=== PATIENT | male | born 1985 | race African-American/Black ===

== ENCOUNTER → 2019-10-01 | Outpatient (REF) | payer OTHER | LOC: M LAB REF 13:32 | PROVIDERS: ATTEND Physician Assistant | DX: R06.00 Dyspnea, unspecified (principal) ==

== ENCOUNTER → 2019-10-02 | Outpatient (REF) | payer OTHER ==
[~2019-10-02] MED LIST: DOXY100C37 PO; PRED20TA PO; PROAAER10; TESS100C PO
== END ==
LOC: M LAB REF 15:38
PROVIDERS: ATTEND Physician Assistant
DX: R06.00 Dyspnea, unspecified (principal)

== ENCOUNTER → 2019-10-03 | Outpatient (REF) | payer OTHER | LOC: M LAB REF 13:10 | PROVIDERS: ATTEND Physician Assistant | DX: R06.00 Dyspnea, unspecified (principal) ==

== ENCOUNTER → 2019-10-03 | Outpatient (CLI) | payer OTHER | LOC: M LAB 08:47 | PROVIDERS: ATTEND Physician Assistant | DX: R06.02 Shortness of breath (principal) ==

== ENCOUNTER → 2019-10-10 | Outpatient (CLI) | payer OTHER ==
[~2019-10-10] MED LIST changes: -DOXY100C37 PO; -PRED20TA PO; -TESS100C PO
--- NOTE | 2019-10-10 17:48 | REP ---
CT chest without contrast: History: Dyspnea. Comparison chest x-ray September 13, 2019. Comparison chest CT study September 14, 2019. Findings: There is no evidence of pleural or pericardial effusion. No adrenal lesion is seen. Visualized upper abdominal structures are unremarkable. There are scattered normal-sized mediastinal lymph nodes. The anterior mediastinum shows evidence of residual thymic tissue. These findings are unchanged from September 14, 2019. No bony abnormality is seen. The lung parenchyma shows multiple abnormalities however. There are patchy chronic bilateral interstitial infiltrates in the upper lobes bilaterally. There are reticular changes in the lower lobes bilaterally associated with some ground-glass opacity confluently in the right lower lobe and to a lesser extent left lower lobe. There is bronchiectasis moderate in degree in the lower lobes bilaterally. There is a noncalcified 1 cm pulmonary nodule in the right lower lobe on page 60 of 99 in series 201 of today's study. The second smaller pulmonary nodule is seen adjacent to this on page 58. There is a 7 mm pulmonary nodule medial to this again in the right lower lobe on the same as slice page 58. These nodular opacities are more prominent and more conspicuous than on the prior study but not felt to be new. There is a ill-defined nodular opacity in the left lower lobe on page 63 which is larger than on the prior study. This measures 10 mm. It has ill-defined margins. There is a 7 mm nodular opacity in the left lower lobe on page 60. There is a small peribronchovascular nodule in the left upper lobe on page 64, 7 mm in diameter. This is unchanged. A tiny 3-4 mm nodule is visible in the lingular segment of the left upper lobe on page 63. This is unchanged. No endobronchial lesion is seen. No bony destructive lesion. Impression: Bilateral lower lobe bronchiectasis associated with reticulonodular changes and ground-glass opacity changes in the lower lobes and to a lesser extent the upper lobes. Chronic granulomatous changes and inflammatory diseases are in the differential. There is no definite adenopathy. Electronically Signed by Rolf Ford MD 10/10/2019 05:49 P
== END ==
LOC: M RAD 09:56
PROVIDERS: ATTEND Physician Assistant
DX: R06.09 Other forms of dyspnea (principal)

== ENCOUNTER 2019-10-11 23:45 | Emergency (ER) | payer OTHER ==
[~2019-10-11] VITALS: Ht 177.8 cm; Wt 91.8 kg
[2019-10-12] MEDS ORDERED: PROAAER10 (00:02)
[2019-10-12 01:56] LABS: BASO # 0.1 10^3/uL (0.0-0.2); BASO % 0.6 % (0.0-1.0); EOS # 0.8 10^3/uL (0.0-0.5); EOS % 6.4 % (0.0-3.0); HEMOGLOBIN 14.5 g/dl (13.5-17.5); LYMPH # 2.3 10^3/uL (1.5-5.0); LYMPH % 19.5 % (24.0-44.0); MEAN CORPUSCULAR HEMOGLOBIN 25.5 pg (27.0-33.0); MEAN CORPUSCULAR HGB CONC 31.5 g/dl (32.0-36.5); MEAN CORPUSCULAR VOLUME 80.8 fl (80.0-96.0); MONO # 1.1 10^3/uL (0.0-0.8); MONO % 9.2 % (0.0-5.0); NEUTROPHILS # 7.5 10^3/uL (1.5-8.5); NEUTROPHILS % 63.9 % (36.0-66.0); PLATELET COUNT, AUTOMATED 288 10^3/uL (150-450); RED BLOOD COUNT 5.69 10^6/uL (4.30-6.10); VENOUS BASE EXCESS 0.6 (-2.0-2.0); VENOUS HCO3 27.5 MEQ/L (23.0-27.0); VENOUS O2 SATURATION 83.9 % (60.0-80.0); VENOUS PARTIAL PRESSURE CO2 52.5 mmHg (38.0-50.0); VENOUS PARTIAL PRESSURE O2 49.8 mmHg (30.0-50.0); VENOUS PH 7.337 UNITS (7.330-7.430); VENOUS STANDARD HCO3 24.7 MEQ/L; VENOUS TOTAL CO2 29.1 MEQ/L (24.0-28.0); WHITE BLOOD COUNT 11.7 10^3/uL (4.0-10.0)
[2019-10-12 02:21] LABS: BLOOD UREA NITROGEN 11 MG/DL (7-18); CARBON DIOXIDE LEVEL 27 MEQ/L (21-32); CHLORIDE LEVEL 105 MEQ/L (98-107); CK-MB VALUE MASS < 1.0 NG/ML (<3.6); CPK CREATINE PHOSPHOKINASE 313 U/L (39-308); CREATININE FOR GFR 0.88 MG/DL (0.70-1.30); GLOMERULAR FILTRATION RATE > 60.0 (>60); GLUCOSE, FASTING 96 MG/DL (70-100); MB/CK RELATIVE INDEX 0.32 (< OR =4); POTASSIUM SERUM 3.8 MEQ/L (3.5-5.1); SODIUM LEVEL 139 MEQ/L (136-145); TROPONIN I < 0.02 NG/ML (< 0.10)
[2019-10-12] MEDS ORDERED: methylPREDNISolone INJ 125 MG/2 ML VIAL (J2930) IV ONE (02:30)
[2019-10-12] MEDS ORDERED: BENZONATATE 100 MG CAP PO ONE (02:30)
[2019-10-12 02:45] LABS: INFLUENZA A AMPLIFICATION NEGATIVE (NEGATIVE); INFLUENZA B AMPLIFICATION NEGATIVE (NEGATIVE)
[2019-10-12] MEDS ORDERED: TESS100C PO (03:50)
[2019-10-12] MEDS ORDERED: PRED20TA PO (03:50)
[2019-10-12 04:05] VITALS: BP 135/87
--- NOTE | 2019-10-12 08:09 | REP ---
Chest x-ray: Two views. History: Dyspnea and cough. Comparison chest CT study October 10, 2019. Comparison chest x-ray September 13. There are increased markings in the lower lobes bilaterally consistent with increased bilateral lower lobe infiltrates. Heart is not enlarged. No pleural effusion is seen. Impression: Bilateral infiltrates consistent with pneumonia. Radiographically more prominent. Electronically Signed by Rolf Ford MD 10/12/2019 08:01 A
--- NOTE | 2019-10-12 15:53 | ED PDOC ---
Post-Departure Follow-Up sae palma and dr griffin faxed formal report of cxr for fu kimberlyg Ji Rowe MD Oct 12, 2019 15:53
--- NOTE | 2019-10-12 15:53 | ED PDOC ---
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
--- NOTE | 2019-10-12 20:12 | ECGEPIP ---
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
[2019-10-15] MEDS ORDERED: DOXY100C37 PO (11:24)
== END 2019-10-12 04:07 | disposition home or self-care (01) ==
LOC: M ED 23:45
DX: J40 Bronchitis, not specified as acute or chronic (principal); Z87.891 Personal history of nicotine dependence
CPT/HCPCS: 71046; 80048; 82550; 82553; 82803; 84484; 85025; 87502; 93005; 96374; 99284; J2930

== ENCOUNTER → 2019-10-18 | Outpatient (CLI) | payer OTHER ==
[~2019-10-18] MED LIST changes: +DOXY100C37 PO; +PRED20TA PO; +TESS100C PO
[2019-10-18 11:11] LABS: BASO # 0.1 10^3/uL (0.0-0.2); BASO % 0.6 % (0.0-1.0); EOS # 0.2 10^3/uL (0.0-0.5); EOS % 1.3 % (0.0-3.0); HEMATOCRIT 49.5 % (42.0-52.0); HEMOGLOBIN 15.8 g/dl (13.5-17.5); LYMPH # 2.4 10^3/uL (1.5-5.0); LYMPH % 20.2 % (24.0-44.0); MEAN CORPUSCULAR HEMOGLOBIN 25.9 pg (27.0-33.0); MEAN CORPUSCULAR HGB CONC 31.9 g/dl (32.0-36.5); MONO % 8.6 % (0.0-5.0); NEUTROPHILS # 8.3 10^3/uL (1.5-8.5); NEUTROPHILS % 68.7 % (36.0-66.0); PLATELET COUNT, AUTOMATED 297 10^3/uL (150-450); RED BLOOD COUNT 6.11 10^6/uL (4.30-6.10)
[2019-10-18 11:50] LABS: ALBUMIN 3.6 GM/DL (3.2-5.2); ALT/SGPT 30 U/L (12-78); BILIRUBIN,DIRECT < 0.1 MG/DL (0.0-0.2); BILIRUBIN,TOTAL 0.3 MG/DL (0.2-1.0); CALCIUM LEVEL 8.3 MG/DL (8.5-10.1); CREATININE FOR GFR 0.86 MG/DL (0.70-1.30); GLOMERULAR FILTRATION RATE > 60.0 (>60); IMMUNOGLOBULIN G 1330 MG/DL (681-1648); IMMUNOGLOBULIN M 45.7 MG/DL (40-230); TOTAL 25(OH) VITAMIN D 12.8 NG/ML (30.0-100.0); TOTAL PROTEIN 7.9 GM/DL (6.4-8.2)
[2019-10-22 14:38] LABS: ANGIOTENSIN 1 CONVERTING ENZYM 42 U/L (14-82); ASPERGILLUS FLAVUS ABY Negative (Neg:<1:1); ASPERGILLUS FUMIGATUS ABY Negative (Neg:<1:1); ASPERGILLUS NIGER ABY Negative (Neg:<1:1); VITAMIN D 1,25 DIHYDROXY 53.4 pg/mL (19.9-79.3)
== END ==
LOC: M LAB 09:46
PROVIDERS: ATTEND Internal Medicine Pulmonary Disease
DX: J47.9 Bronchiectasis, uncomplicated (principal)

== ENCOUNTER → 2019-11-26 | Outpatient (CLI) | payer OTHER ==
[~2019-11-26] MED LIST changes: +BAYE325T13 PO; +LIDOCAINE 1% MDV 20ML VIAL As Ordered ONE
[2019-11-26 15:12] VITALS: BP 150/98
--- NOTE | 2019-11-28 22:28 | REP ---
PICC line insertion under ultrasound guidance. The procedure was performed by STEPHENIE Kaufman, under the direct supervision of Dr. Blanca. The risks and benefits of the procedure were explained to the patient and informed consent was obtained both verbally and written. Directly prior to the start of the procedure, a formal timeout was completed in the procedure room. The left basilic vein was localized using ultrasound guidance. The skin was prepped and draped in the sterile fashion. 2 ml 1% lidocaine 10 mg/ml was used as a local anesthetic. Using ultrasound guidance the left basilic vein was cannulated and a 0.018 guidewire was inserted and advanced to the SVC using fluoroscopic guidance. The needle was removed and a 4.5 Chinese dilator and peel-away sheath was inserted over the guidewire. A 4.5 Chinese single lumen catheter was cut to the length of 45 cm. The dilator was removed and the catheter was inserted over the guide wire with the tip ending in the SVC. The peel-away sheath was removed and the catheter was flushed with heparinized saline as per hospital protocol. The catheter was affixed to the skin and a sterile dressing was applied. The patient tolerated the procedure well and there were no immediate complications. 0.3 minutes of fluoroscopy time was utilized for this procedure. Some fluoroscopic images are performed with last image hold technology. These images require no additional radiation. Reviewed by STEPHENIE Collazo 11/26/2019 04:45 P Electronically Signed by Ritesh Blanca MD 11/28/2019 10:19 P
== END ==
LOC: M IRPRO 14:20
PROVIDERS: ATTEND Internal Medicine Infectious Disease
DX: A31.9 Mycobacterial infection, unspecified (principal)
CPT/HCPCS: 36573; C1751; J1642; J1644

== ENCOUNTER → 2019-11-26 | Outpatient (CLI) | payer OTHER ==
[~2019-11-26] MED LIST changes: +ALBU83IN INH; -LIDOCAINE 1% MDV 20ML VIAL As Ordered ONE; +OMEP-218 PO; +PRED10TA2 PO; -PROAAER10; +PROAAER10 INH; +PULM0.5S INH
[2019-11-26 15:18] LABS: APPEARANCE, URINE CLEAR (CLEAR); BACTERIA, URINE AUTO NEGATIVE (NEGATIVE); BILIRUBIN, URINE AUTO NEGATIVE (NEGATIVE); BLOOD, URINE BLOOD NEGATIVE (NEGATIVE); COLOR, URINE YELLOW (YELLOW); GLUCOSE, URINE (UA) AUTO NEGATIVE (NEGATIVE); KETONE, URINE AUTO NEGATIVE (NEGATIVE); LEUKOCYTE ESTERASE, URINE AUTO NEGATIVE (NEGATIVE); MUCUS, URINE SMALL (NEGATIVE); NITRITE, URINE AUTO NEGATIVE (NEGATIVE); PROTEIN, URINE AUTO NEGATIVE (NEGATIVE); RBC, URINE AUTO 2 /HPF (0-3); SPECIFIC GRAVITY URINE AUTO 1.019 (1.002-1.035); SQUAMOUS EPITHELIAL CELL UR AU 0 /HPF (0-6); UROBILINOGEN, URINE AUTO 0.2 mg/dL (0.0-2.0); WBC, URINE AUTO 0 /HPF (0-3)
[2019-11-26 15:32] LABS: BASO # 0.1 10^3/uL (0.0-0.2); BASO % 0.7 % (0.0-1.0); EOS # 0.4 10^3/uL (0.0-0.5); EOS % 4.2 % (0.0-3.0); HEMATOCRIT 49.2 % (42.0-52.0); HEMOGLOBIN 15.7 g/dl (13.5-17.5); LYMPH # 2.2 10^3/uL (1.5-5.0); LYMPH % 24.3 % (24.0-44.0); MEAN CORPUSCULAR HEMOGLOBIN 25.5 pg (27.0-33.0); MEAN CORPUSCULAR HGB CONC 31.9 g/dl (32.0-36.5); MEAN CORPUSCULAR VOLUME 79.9 fl (80.0-96.0); MONO # 0.7 10^3/uL (0.0-0.8); MONO % 8.1 % (0.0-5.0); NEUTROPHILS # 5.6 10^3/uL (1.5-8.5); NEUTROPHILS % 62.4 % (36.0-66.0); PLATELET COUNT, AUTOMATED 264 10^3/uL (150-450); RED BLOOD COUNT 6.16 10^6/uL (4.30-6.10)
[2019-11-26 15:47] LABS: URINE TOTAL PROTEIN 11.9 MG/DL (0-12)
[2019-11-26 15:51] LABS: ALBUMIN 3.9 GM/DL (3.2-5.2); ALT/SGPT 24 U/L (12-78); BILIRUBIN,TOTAL 0.3 MG/DL (0.2-1.0); BLOOD UREA NITROGEN 13 MG/DL (7-18); C REACTIVE PROTEIN QUANTITATIV 0.55 MG/DL (0.00-0.30); CALCIUM LEVEL 8.6 MG/DL (8.5-10.1); CARBON DIOXIDE LEVEL 27 MEQ/L (21-32); CHLORIDE LEVEL 104 MEQ/L (98-107); CREATININE FOR GFR 0.82 MG/DL (0.70-1.30); GLOMERULAR FILTRATION RATE > 60.0 (>60); GLUCOSE, FASTING 104 MG/DL (70-100); POTASSIUM SERUM 4.3 MEQ/L (3.5-5.1); SODIUM LEVEL 137 MEQ/L (136-145); TOTAL PROTEIN 8.1 GM/DL (6.4-8.2)
[2019-11-26 15:52] LABS: ERYTHROCYTE SEDIMENTATION RATE 3 mm/hr (0-15)
[2019-11-26 16:40] LABS: HIV 1&2 SCREEN CENTAUR NEGATIVE (NEGATIVE)
[2019-11-27 11:56] LABS: ALBUMIN % 54.8 % (55.8-66.1)
[2019-11-27 11:57] LABS: ALBUMIN 4.44 GM/DL (3.29-5.55); ALPHA-1-GLOBULIN % 3.2 % (2.9-4.9); ALPHA-1-GLOBULINS 0.26 GM/DL (0.17-0.41); ALPHA-2-GLOBULINS 0.73 GM/DL (0.42-0.99); BETA-1-GLOBULINS 0.52 GM/DL (0.28-0.60); BETA-1-GLOBULINS % 6.4 % (4.7-7.2); BETA-2-GLOBULINS 0.62 GM/DL (0.19-0.55); BETA-2-GLOBULINS % 7.6 % (3.2-6.5); GAMMA GLOBULINS 1.54 GM/DL (0.65-1.58)
[2019-11-29 14:33] LABS: UPEP INTERPRETATION NO M-SPIKE NOTED; URINE VOLUME RANDOM ML
== END ==
LOC: M LAB 13:26
PROVIDERS: ATTEND Internal Medicine Infectious Disease
DX: A31.9 Mycobacterial infection, unspecified (principal); R74.8 Abnormal levels of other serum enzymes
CPT/HCPCS: 36415; 80053; 81001; 84165; 84166; 85025; 85652; 86140; 87389; 96365; 96367; C1751; G0463; J0278; J0743; J1642; J1644

== ENCOUNTER → 2019-11-26 | Outpatient (CLI) | payer OTHER ==
[~2019-11-26] VITALS: Ht 177.8 cm; Wt 90.7 kg
[~2019-11-26] MED LIST changes: -ALBU83IN INH; +AMIKACIN SULFATE IV ONE; +D5W IV ONE; +IMIPENEM/CILASTATIN 1,000 MG in NS 250 ML IV ONE; -OMEP-218 PO; -PRED10TA2 PO; +PROAAER10; -PROAAER10 INH; -PULM0.5S INH; +SODIUM CHLORIDE 0.9% INJ 10 ML SYR IV PRN; +SODIUM CHLORIDE 0.9% INJ 10 ML SYR IV SCH
[2019-11-26 15:20] VITALS: BP 135/88
[2019-11-26 17:30] VITALS: BP 131/82
[2019-11-26 18:37] VITALS: BP 130/73
[2019-11-26 18:52] VITALS: BP 124/76
== END ==
LOC: M INFU 15:40
PROVIDERS: ATTEND Internal Medicine Infectious Disease
DX: A31.9 Mycobacterial infection, unspecified (principal)
CPT/HCPCS: 96365; 96367; J0278; J0743; J1642

== ENCOUNTER → 2019-12-05 | Outpatient (REF) | payer OTHER ==
[~2019-12-05] MED LIST changes: +ALBU83IN INH; -AMIKACIN SULFATE IV ONE; -D5W IV ONE; -IMIPENEM/CILASTATIN 1,000 MG in NS 250 ML IV ONE; +OMEP-218 PO; +PRED10TA2 PO; -PROAAER10; +PROAAER10 INH; +PULM0.5S INH; -SODIUM CHLORIDE 0.9% INJ 10 ML SYR IV PRN; -SODIUM CHLORIDE 0.9% INJ 10 ML SYR IV SCH
[2019-12-05 12:38] LABS: BASO # 0.1 10^3/uL (0.0-0.2); BASO % 0.8 % (0.0-1.0); EOS # 0.7 10^3/uL (0.0-0.5); EOS % 9.9 % (0.0-3.0); HEMATOCRIT 48.8 % (42.0-52.0); LYMPH # 1.9 10^3/uL (1.5-5.0); LYMPH % 26.8 % (24.0-44.0); MEAN CORPUSCULAR HEMOGLOBIN 25.1 pg (27.0-33.0); MEAN CORPUSCULAR HGB CONC 30.7 g/dl (32.0-36.5); MEAN CORPUSCULAR VOLUME 81.7 fl (80.0-96.0); MONO # 0.7 10^3/uL (0.0-0.8); MONO % 9.9 % (0.0-5.0); NEUTROPHILS # 3.7 10^3/uL (1.5-8.5); NEUTROPHILS % 52.3 % (36.0-66.0); PLATELET COUNT, AUTOMATED 196 10^3/uL (150-450); RED BLOOD COUNT 5.97 10^6/uL (4.30-6.10); WHITE BLOOD COUNT 7.1 10^3/uL (4.0-10.0)
[2019-12-05 12:42] LABS: ALBUMIN 3.6 GM/DL (3.2-5.2); ALT/SGPT 21 U/L (12-78); BILIRUBIN,TOTAL 0.4 MG/DL (0.2-1.0); BLOOD UREA NITROGEN 11 MG/DL (7-18); C REACTIVE PROTEIN QUANTITATIV 0.97 MG/DL (0.00-0.30); CALCIUM LEVEL 8.3 MG/DL (8.5-10.1); CARBON DIOXIDE LEVEL 26 MEQ/L (21-32); CHLORIDE LEVEL 107 MEQ/L (98-107); CREATININE FOR GFR 0.89 MG/DL (0.70-1.30); GLOMERULAR FILTRATION RATE > 60.0 (>60); GLUCOSE, FASTING 117 MG/DL (70-100); POTASSIUM SERUM 3.9 MEQ/L (3.5-5.1); SODIUM LEVEL 140 MEQ/L (136-145); TOTAL PROTEIN 7.5 GM/DL (6.4-8.2)
[2019-12-05 13:41] LABS: ERYTHROCYTE SEDIMENTATION RATE 5 mm/hr (0-15)
== END ==
LOC: M LAB REF 10:48
PROVIDERS: ATTEND Internal Medicine Infectious Disease
DX: J47.1 Bronchiectasis with (acute) exacerbation (principal); A31.0 Pulmonary mycobacterial infection

== ENCOUNTER 2019-12-07 13:31 | Emergency (ER) | payer OTHER ==
[~2019-12-07] VITALS: Ht 177.8 cm; Wt 92.8 kg
[~2019-12-07 13:31] MED LIST changes: -ALBU83IN INH; -OMEP-218 PO; -PRED10TA2 PO; -PULM0.5S INH
[2019-12-07] MEDS ORDERED: OMEP-218 PO (13:38)
[2019-12-07] MEDS ORDERED: PULM0.5S INH (13:38)
[2019-12-07] MEDS ORDERED: ALBU83IN INH (13:38)
[2019-12-07] MEDS ORDERED: PRED10TA2 PO (13:38)
[2019-12-07] MEDS ORDERED: SODIUM CHLORIDE 0.9% INJ 10 ML SYR IV PRN (14:45)
[2019-12-07 15:42] VITALS: BP 131/84
== END 2019-12-07 15:49 | disposition home or self-care (01) ==
LOC: M ED 13:31
DX: T82.898A Other specified complication of vascular prosthetic devices, implants and grafts, initial encounter (principal); Y82.8 Other medical devices associated with adverse incidents; L02.91 Cutaneous abscess, unspecified; J47.9 Bronchiectasis, uncomplicated; K21.9 Gastro-esophageal reflux disease without esophagitis; Z79.899 Other long term (current) drug therapy; Z79.52 Long term (current) use of systemic steroids
CPT/HCPCS: 99283; J1642

== ENCOUNTER → 2019-12-12 | Outpatient (REF) | payer OTHER ==
[~2019-12-12] MED LIST changes: +ALBU83IN INH; +OMEP-218 PO; +PRED10TA2 PO; +PULM0.5S INH
[2019-12-12 12:01] LABS: BASO # 0.1 10^3/uL (0.0-0.2); EOS # 0.5 10^3/uL (0.0-0.5); EOS % 4.3 % (0.0-3.0); HEMOGLOBIN 15.1 g/dl (13.5-17.5); LYMPH # 3.9 10^3/uL (1.5-5.0); LYMPH % 37.5 % (24.0-44.0); MEAN CORPUSCULAR HGB CONC 32.8 g/dl (32.0-36.5); MEAN CORPUSCULAR VOLUME 79.3 fl (80.0-96.0); MONO # 0.8 10^3/uL (0.0-0.8); MONO % 8.1 % (0.0-5.0); NEUTROPHILS # 5.1 10^3/uL (1.5-8.5); NEUTROPHILS % 48.8 % (36.0-66.0); PLATELET COUNT, AUTOMATED 247 10^3/uL (150-450); WHITE BLOOD COUNT 10.4 10^3/uL (4.0-10.0)
[2019-12-12 12:28] LABS: ALBUMIN 3.6 GM/DL (3.2-5.2); ALT/SGPT 22 U/L (12-78); BILIRUBIN,TOTAL 0.4 MG/DL (0.2-1.0); BLOOD UREA NITROGEN 16 MG/DL (7-18); CALCIUM LEVEL 8.4 MG/DL (8.5-10.1); CARBON DIOXIDE LEVEL 29 MEQ/L (21-32); CHLORIDE LEVEL 101 MEQ/L (98-107); CREATININE FOR GFR 0.81 MG/DL (0.70-1.30); GLOMERULAR FILTRATION RATE > 60.0 (>60); GLUCOSE, FASTING 94 MG/DL (70-100); POTASSIUM SERUM 3.3 MEQ/L (3.5-5.1); SODIUM LEVEL 138 MEQ/L (136-145); TOTAL PROTEIN 7.5 GM/DL (6.4-8.2)
[2019-12-12 12:43] LABS: ERYTHROCYTE SEDIMENTATION RATE 4 mm/hr (0-15)
== END ==
LOC: M SHH 11:40
PROVIDERS: ATTEND Internal Medicine Infectious Disease
DX: R74.8 Abnormal levels of other serum enzymes (principal); A31.0 Pulmonary mycobacterial infection; J47.1 Bronchiectasis with (acute) exacerbation

== ENCOUNTER → 2019-12-19 | Outpatient (REF) | payer OTHER ==
[2019-12-19 11:22] LABS: BASO # 0.1 10^3/uL (0.0-0.2); BASO % 0.4 % (0.0-1.0); EOS # 0.5 10^3/uL (0.0-0.5); EOS % 4.1 % (0.0-3.0); HEMATOCRIT 48.1 % (42.0-52.0); HEMOGLOBIN 15.1 g/dl (13.5-17.5); LYMPH # 3.7 10^3/uL (1.5-5.0); LYMPH % 29.8 % (24.0-44.0); MEAN CORPUSCULAR HEMOGLOBIN 25.6 pg (27.0-33.0); MEAN CORPUSCULAR HGB CONC 31.4 g/dl (32.0-36.5); MEAN CORPUSCULAR VOLUME 81.7 fl (80.0-96.0); MONO # 0.9 10^3/uL (0.0-0.8); MONO % 6.9 % (0.0-5.0); NEUTROPHILS # 7.3 10^3/uL (1.5-8.5); NEUTROPHILS % 58.3 % (36.0-66.0); PLATELET COUNT, AUTOMATED 240 10^3/uL (150-450); RED BLOOD COUNT 5.89 10^6/uL (4.30-6.10); WHITE BLOOD COUNT 12.5 10^3/uL (4.0-10.0)
[2019-12-19 11:49] LABS: ERYTHROCYTE SEDIMENTATION RATE 3 mm/hr (0-15)
[2019-12-19 11:51] LABS: ALBUMIN 3.6 GM/DL (3.2-5.2); ALT/SGPT 18 U/L (12-78); BILIRUBIN,TOTAL 0.6 MG/DL (0.2-1.0); BLOOD UREA NITROGEN 14 MG/DL (7-18); CALCIUM LEVEL 8.5 MG/DL (8.5-10.1); CARBON DIOXIDE LEVEL 30 MEQ/L (21-32); CHLORIDE LEVEL 102 MEQ/L (98-107); GLOMERULAR FILTRATION RATE > 60.0 (>60); GLUCOSE, FASTING 101 MG/DL (70-100); POTASSIUM SERUM 3.6 MEQ/L (3.5-5.1); SODIUM LEVEL 139 MEQ/L (136-145); TOTAL PROTEIN 7.7 GM/DL (6.4-8.2)
== END ==
LOC: M SHH 10:30
PROVIDERS: ATTEND Internal Medicine Infectious Disease
DX: A31.0 Pulmonary mycobacterial infection (principal); J47.1 Bronchiectasis with (acute) exacerbation

== ENCOUNTER → 2019-12-26 | Outpatient (REF) | payer OTHER ==
[2019-12-26 12:13] LABS: BASO # 0.1 10^3/uL (0.0-0.2); BASO % 0.7 % (0.0-1.0); EOS # 0.3 10^3/uL (0.0-0.5); EOS % 2.9 % (0.0-3.0); HEMATOCRIT 50.7 % (42.0-52.0); HEMOGLOBIN 15.9 g/dl (13.5-17.5); LYMPH # 3.1 10^3/uL (1.5-5.0); LYMPH % 32.1 % (24.0-44.0); MEAN CORPUSCULAR HGB CONC 31.4 g/dl (32.0-36.5); MEAN CORPUSCULAR VOLUME 79.8 fl (80.0-96.0); MONO # 0.8 10^3/uL (0.0-0.8); MONO % 8.2 % (0.0-5.0); NEUTROPHILS # 5.4 10^3/uL (1.5-8.5); NEUTROPHILS % 55.6 % (36.0-66.0); PLATELET COUNT, AUTOMATED 238 10^3/uL (150-450); RED BLOOD COUNT 6.35 10^6/uL (4.30-6.10); WHITE BLOOD COUNT 9.8 10^3/uL (4.0-10.0)
[2019-12-26 12:30] LABS: ALBUMIN 3.6 GM/DL (3.2-5.2); ALT/SGPT 24 U/L (12-78); BILIRUBIN,TOTAL 0.5 MG/DL (0.2-1.0); BLOOD UREA NITROGEN 13 MG/DL (7-18); C REACTIVE PROTEIN QUANTITATIV 1.05 MG/DL (0.00-0.30); CALCIUM LEVEL 8.4 MG/DL (8.5-10.1); CARBON DIOXIDE LEVEL 28 MEQ/L (21-32); CHLORIDE LEVEL 103 MEQ/L (98-107); CREATININE FOR GFR 0.81 MG/DL (0.70-1.30); GLOMERULAR FILTRATION RATE > 60.0 (>60); GLUCOSE, FASTING 274 MG/DL (70-100); POTASSIUM SERUM 3.9 MEQ/L (3.5-5.1); SODIUM LEVEL 138 MEQ/L (136-145)
[2019-12-26 12:49] LABS: ERYTHROCYTE SEDIMENTATION RATE 3 mm/hr (0-15)
== END ==
LOC: M SHH 11:22 → M LAB REF 11:22
PROVIDERS: ATTEND Internal Medicine Infectious Disease
DX: A31.0 Pulmonary mycobacterial infection (principal); J47.1 Bronchiectasis with (acute) exacerbation; R74.8 Abnormal levels of other serum enzymes

== ENCOUNTER → 2019-12-31 | Outpatient (REF) | payer OTHER ==
[2019-12-31 10:51] LABS: BASO # 0.1 10^3/uL (0.0-0.2); BASO % 0.7 % (0.0-1.0); EOS # 0.6 10^3/uL (0.0-0.5); EOS % 6.5 % (0.0-3.0); HEMATOCRIT 47.7 % (42.0-52.0); HEMOGLOBIN 15.3 g/dl (13.5-17.5); LYMPH # 2.7 10^3/uL (1.5-5.0); LYMPH % 26.9 % (24.0-44.0); MEAN CORPUSCULAR HEMOGLOBIN 25.2 pg (27.0-33.0); MEAN CORPUSCULAR HGB CONC 32.1 g/dl (32.0-36.5); MEAN CORPUSCULAR VOLUME 78.5 fl (80.0-96.0); MONO # 0.9 10^3/uL (0.0-0.8); MONO % 8.6 % (0.0-5.0); NEUTROPHILS # 5.7 10^3/uL (1.5-8.5); PLATELET COUNT, AUTOMATED 213 10^3/uL (150-450); RED BLOOD COUNT 6.08 10^6/uL (4.30-6.10); WHITE BLOOD COUNT 9.9 10^3/uL (4.0-10.0)
[2019-12-31 11:12] LABS: ALBUMIN 3.7 GM/DL (3.2-5.2); ALT/SGPT 21 U/L (12-78); BILIRUBIN,TOTAL 0.6 MG/DL (0.2-1.0); BLOOD UREA NITROGEN 16 MG/DL (7-18); CALCIUM LEVEL 8.8 MG/DL (8.5-10.1); CARBON DIOXIDE LEVEL 32 MEQ/L (21-32); CHLORIDE LEVEL 99 MEQ/L (98-107); CREATININE FOR GFR 0.94 MG/DL (0.70-1.30); GLOMERULAR FILTRATION RATE > 60.0 (>60); GLUCOSE, FASTING 329 MG/DL (70-100); POTASSIUM SERUM 3.6 MEQ/L (3.5-5.1); SODIUM LEVEL 136 MEQ/L (136-145); TOTAL PROTEIN 7.6 GM/DL (6.4-8.2)
[2019-12-31 11:48] LABS: ERYTHROCYTE SEDIMENTATION RATE 7 mm/hr (0-15)
[2019-12-31 13:45] LABS: HEMOGLOBIN A1c 7.8 %
== END ==
LOC: M SHH 09:50
PROVIDERS: ATTEND Internal Medicine Infectious Disease
DX: J47.1 Bronchiectasis with (acute) exacerbation (principal); A31.0 Pulmonary mycobacterial infection

== ENCOUNTER → 2020-01-07 | Outpatient (REF) | payer OTHER ==
[2020-01-07 10:35] LABS: BASO # 0.1 10^3/uL (0.0-0.2); BASO % 0.6 % (0.0-1.0); EOS # 0.3 10^3/uL (0.0-0.5); EOS % 2.5 % (0.0-3.0); HEMOGLOBIN 15.9 g/dl (13.5-17.5); LYMPH # 2.6 10^3/uL (1.5-5.0); LYMPH % 22.9 % (24.0-44.0); MEAN CORPUSCULAR HEMOGLOBIN 25.6 pg (27.0-33.0); MEAN CORPUSCULAR HGB CONC 33.1 g/dl (32.0-36.5); MEAN CORPUSCULAR VOLUME 77.2 fl (80.0-96.0); MONO # 0.8 10^3/uL (0.0-0.8); MONO % 7.5 % (0.0-5.0); NEUTROPHILS # 7.4 10^3/uL (1.5-8.5); NEUTROPHILS % 66.1 % (36.0-66.0); PLATELET COUNT, AUTOMATED 200 10^3/uL (150-450); RED BLOOD COUNT 6.22 10^6/uL (4.30-6.10); WHITE BLOOD COUNT 11.2 10^3/uL (4.0-10.0)
[2020-01-07 11:13] LABS: ERYTHROCYTE SEDIMENTATION RATE 12 mm/hr (0-15)
[2020-01-07 11:35] LABS: ALBUMIN 3.6 GM/DL (3.2-5.2); ALT/SGPT 32 U/L (12-78); BILIRUBIN,TOTAL 0.5 MG/DL (0.2-1.0); BLOOD UREA NITROGEN 18 MG/DL (7-18); C REACTIVE PROTEIN QUANTITATIV 3.24 MG/DL (0.00-0.30); CALCIUM LEVEL 8.7 MG/DL (8.5-10.1); CARBON DIOXIDE LEVEL 24 MEQ/L (21-32); CHLORIDE LEVEL 96 MEQ/L (98-107); CREATININE FOR GFR 0.91 MG/DL (0.70-1.30); GLOMERULAR FILTRATION RATE > 60.0 (>60); GLUCOSE, FASTING 432 MG/DL (70-100); POTASSIUM SERUM 3.9 MEQ/L (3.5-5.1); SODIUM LEVEL 131 MEQ/L (136-145); TOTAL PROTEIN 7.9 GM/DL (6.4-8.2)
== END ==
LOC: M SHH 10:07
PROVIDERS: ATTEND Internal Medicine Infectious Disease
DX: J47.1 Bronchiectasis with (acute) exacerbation (principal); A31.0 Pulmonary mycobacterial infection

== ENCOUNTER → 2020-01-14 | Outpatient (REF) | payer OTHER ==
[2020-01-14 10:58] LABS: BASO # 0.1 10^3/uL (0.0-0.2); BASO % 0.8 % (0.0-1.0); EOS # 0.3 10^3/uL (0.0-0.5); EOS % 3.4 % (0.0-3.0); HEMATOCRIT 49.4 % (42.0-52.0); HEMOGLOBIN 16.2 g/dl (13.5-17.5); LYMPH % 30.2 % (24.0-44.0); MEAN CORPUSCULAR HEMOGLOBIN 25.2 pg (27.0-33.0); MEAN CORPUSCULAR HGB CONC 32.8 g/dl (32.0-36.5); MEAN CORPUSCULAR VOLUME 76.8 fl (80.0-96.0); MONO # 0.8 10^3/uL (0.0-0.8); MONO % 8.3 % (0.0-5.0); NEUTROPHILS # 5.6 10^3/uL (1.5-8.5); NEUTROPHILS % 56.9 % (36.0-66.0); PLATELET COUNT, AUTOMATED 213 10^3/uL (150-450); RED BLOOD COUNT 6.43 10^6/uL (4.30-6.10); WHITE BLOOD COUNT 9.9 10^3/uL (4.0-10.0)
[2020-01-14 11:10] LABS: ALBUMIN 3.4 GM/DL (3.2-5.2); ALT/SGPT 15 U/L (12-78); BILIRUBIN,TOTAL 0.5 MG/DL (0.2-1.0); BLOOD UREA NITROGEN 14 MG/DL (7-18); C REACTIVE PROTEIN QUANTITATIV 2.77 MG/DL (0.00-0.30); CARBON DIOXIDE LEVEL 26 MEQ/L (21-32); CHLORIDE LEVEL 96 MEQ/L (98-107); GLOMERULAR FILTRATION RATE > 60.0 (>60); GLUCOSE, FASTING 408 MG/DL (70-100); SODIUM LEVEL 134 MEQ/L (136-145); TOTAL PROTEIN 7.8 GM/DL (6.4-8.2)
[2020-01-14 11:22] LABS: ERYTHROCYTE SEDIMENTATION RATE 5 mm/hr (0-15)
== END ==
LOC: M SHH 10:38 → M LAB REF 10:38
PROVIDERS: ATTEND Internal Medicine Infectious Disease
DX: A31.0 Pulmonary mycobacterial infection (principal); J47.1 Bronchiectasis with (acute) exacerbation

== ENCOUNTER → 2020-01-18 | Outpatient (CLI) | payer OTHER ==
[~2020-01-18] MED LIST changes: +LIDOCAINE 1% MDV 20ML VIAL As Ordered ONE; +MIDAZOLAM INJ 2 MG/2 ML VIAL (J2250) As Ordered ONE; +ceFAZolin 1GM INJ (J0690 PER 500MG) As Ordered ONE; +diphenhydrAMINE INJ 50MG/ML VIAL (J1200) As Ordered ONE; +fentaNYL 100 MCG/2 ML INJECTION (J3010) As Ordered ONE
--- NOTE | 2020-01-18 10:31 | IRHP ---
[facility] IR Pre-Procedure H & P General Date of Service: Jan 18, 2020 Procedure: Same Day Surgery Interval History and Physical I have seen the patient and reviewed last H & P performed within 30 days. There is no significant interval change. History of Present Illness Chief Complaint The patient is a 34-year-old male admitted with a reason for visit of Pulm Mycobacterial Infection, Iv Med Use. PRE-PROCEDURE DIAGNOSIS: mycobacterial pulmonary infection HEART: normal rate LUNGS: normal breathing at rest.. ASA Classification ASA Classification: II-Mild systemic disease Mallampati Score: II NPO: Yes Problems with prior sedation: No Obstructive Sleep Apnea: No Allergies Coded Allergies: No Known Allergies (Unverified , 11/14/19) Home Medications Scheduled Albuterol Sulf (Albuterol Sulfate), 1 NEB INH QID, (Reported) Budesonide (Pulmicort), 1 NEB INH BID, (Reported) Omeprazole (Omeprazole), 1 TAB PO DAILY, (Reported) Prednisone (Prednisone), 4 TABS PO DAILY, (Reported) Scheduled PRN Albuterol Sulfate (Proair Hfa), 2 PUFFS INH Q4HP PRN for SHORTNESS OF BREATH, (Reported) VS, I&O, 24H, Fishbone Vital Signs/I&O Vital Signs Date Time Temp Pulse Resp B/P (MAP) Pulse Ox O2 Delivery O2 Flow Rate FiO2 01/18/20 09:39 97.8 113 18 93 Room Air CLEMENT ELLISON MD Jan 18, 2020 10:31
[2020-01-18 12:52] VITALS: BP 142/94
--- NOTE | 2020-01-18 13:14 | POST-OPPD ---
Postoperative Procedure Note Date Of Procedure: Jan 18, 2020 Time Of Procedure: 13:14 PREOPERATIVE DIAGNOSIS: esophageal ca POSTOPERATIVE DIAGNOSIS: same FINDINGS: patent right IJ PROCEDURE: right side port SURGEON: maeve ANESTHESIA: mod sed ESTIMATED BLOOD LOSS: < 5 ml COMPLICATIONS: none POSTOPERATIVE CONDITION: stable CLEMENT ELLISON MD Jan 18, 2020 13:14
--- NOTE | 2020-01-18 15:56 | REP ---
IR Ultrasound and fluoroscopy-guided port placement. IR Ultrasound of the neck. IR Moderate sedation. Clinical information: Mycobacterial pulmonary infection. Needs 12 months of IV access. Physician: Dr. Rivera. Procedure: The patient was advised of the benefits, risks, and alternatives of the procedure and informed consent was obtained. A time-out was performed with verification of the patient's name, MRN, site of procedure and type of procedure to be performed. The patient was positioned in the supine position on the angiographic table. The site was prepped and draped in the usual sterile fashion. Moderate sedation was performed by the physician including the presence of an independent trained observer who assisted and monitored the patient's level of consciousness and physiologic status. Following the administration of fentanyl and Versed, the physician spent 45 minutes of continuous face to face time with the patient. Ultrasound of the neck reveals a patent and compressible right internal jugular vein. A agricultural crop farm manager radiograph reveals patchy pulmonary opacities. The neck and anterior chest wall were anesthetized with lidocaine. The right internal jugular vein was accessed using a microintroducer needle under ultrasound guidance, via a lateral approach. An 018 wire was advanced into the superior vena cava, the needle was removed and a microsheath was placed. An Amplatz wire was then passed into the inferior vena cava. An incision at the internal jugular vein access site and anterior chest wall were made using a scalpel. An incision was made at the anterior chest wall. A small pocket was created using a combination of blunt and sharp dissection. A tunneling device was then used to pass the catheter from the pocket to the neck puncture site. An 8-Estonian Angio Anafore Smart power port was then positioned in the pocket. The catheter was then measured and cut. The introducer sheath was exchanged for a peel-away sheath. The catheter was passed through the peel-away sheath into the internal jugular vein and the peel-away sheath was removed. The port tip was positioned at the cavoatrial junction. The port was then accessed with a Waggoner needle. The port flushes and aspirates well. The puncture site in the neck was closed. The chest wall incision was then closed with 2-0 Vicryl and 4-0 Monocryl. Glue and Steri-Strips were applied. A sterile dressing was then applied. The patient tolerated the procedure well and was returned to the PRU in stable condition. Estimated blood loss: <5 ml. Complications: None. Conclusion: 1. Successful placement of an 8-Estonian Angio dynamics Smart power port via the right internal jugular vein. The port is ready for immediate use. 2. Patient to follow up in IR clinic in 2 weeks. Thank you for this referral. Electronically Signed by Mehnaz Rivera MD 01/18/2020 12:15 P
== END ==
LOC: M IRPRO 09:26
PROVIDERS: ATTEND Radiology Diagnostic Radiology
DX: A31.0 Pulmonary mycobacterial infection (principal)
CPT/HCPCS: 36561; 99152; 99153; C1769; C1788; C1894; J0690; J1200; J1642; J1644; J2250; J3010

== ENCOUNTER → 2020-01-21 | Outpatient (REF) | payer OTHER ==
[~2020-01-21] MED LIST changes: -LIDOCAINE 1% MDV 20ML VIAL As Ordered ONE; -MIDAZOLAM INJ 2 MG/2 ML VIAL (J2250) As Ordered ONE; -ceFAZolin 1GM INJ (J0690 PER 500MG) As Ordered ONE; -diphenhydrAMINE INJ 50MG/ML VIAL (J1200) As Ordered ONE; -fentaNYL 100 MCG/2 ML INJECTION (J3010) As Ordered ONE
[2020-01-21 10:21] LABS: BASO # 0.1 10^3/uL (0.0-0.2); BASO % 0.7 % (0.0-1.0); EOS # 0.3 10^3/uL (0.0-0.5); HEMATOCRIT 48.7 % (42.0-52.0); HEMOGLOBIN 15.7 g/dl (13.5-17.5); LYMPH # 2.3 10^3/uL (1.5-5.0); LYMPH % 27.7 % (24.0-44.0); MEAN CORPUSCULAR HGB CONC 32.2 g/dl (32.0-36.5); MEAN CORPUSCULAR VOLUME 77.4 fl (80.0-96.0); MONO # 0.8 10^3/uL (0.0-0.8); MONO % 9.3 % (0.0-5.0); NEUTROPHILS # 4.9 10^3/uL (1.5-8.5); NEUTROPHILS % 58.7 % (36.0-66.0); PLATELET COUNT, AUTOMATED 211 10^3/uL (150-450); RED BLOOD COUNT 6.29 10^6/uL (4.30-6.10); WHITE BLOOD COUNT 8.4 10^3/uL (4.0-10.0)
[2020-01-21 10:55] LABS: ALBUMIN 3.4 GM/DL (3.2-5.2); ALT/SGPT 17 U/L (12-78); BILIRUBIN,TOTAL 0.4 MG/DL (0.2-1.0); BLOOD UREA NITROGEN 14 MG/DL (7-18); C REACTIVE PROTEIN QUANTITATIV 2.18 MG/DL (0.00-0.30); CALCIUM LEVEL 8.4 MG/DL (8.5-10.1); CARBON DIOXIDE LEVEL 27 MEQ/L (21-32); CHLORIDE LEVEL 101 MEQ/L (98-107); CREATININE FOR GFR 0.86 MG/DL (0.70-1.30); GLOMERULAR FILTRATION RATE > 60.0 (>60); GLUCOSE, FASTING 369 MG/DL (70-100); POTASSIUM SERUM 3.7 MEQ/L (3.5-5.1); SODIUM LEVEL 135 MEQ/L (136-145); TOTAL PROTEIN 7.5 GM/DL (6.4-8.2)
[2020-01-21 11:11] LABS: ERYTHROCYTE SEDIMENTATION RATE 63 mm/hr (0-15)
== END ==
LOC: M LAB REF 09:56
PROVIDERS: ATTEND Internal Medicine Infectious Disease
DX: A31.0 Pulmonary mycobacterial infection (principal); J47.1 Bronchiectasis with (acute) exacerbation

== ENCOUNTER → 2020-01-28 | Outpatient (REF) | payer OTHER ==
[2020-01-28 13:18] LABS: BASO # 0.1 10^3/uL (0.0-0.2); BASO % 0.7 % (0.0-1.0); EOS # 0.2 10^3/uL (0.0-0.5); EOS % 2.6 % (0.0-3.0); HEMATOCRIT 46.2 % (42.0-52.0); LYMPH # 2.4 10^3/uL (1.5-5.0); LYMPH % 30.8 % (24.0-44.0); MEAN CORPUSCULAR HEMOGLOBIN 25.4 pg (27.0-33.0); MEAN CORPUSCULAR HGB CONC 32.5 g/dl (32.0-36.5); MEAN CORPUSCULAR VOLUME 78.2 fl (80.0-96.0); MONO # 0.7 10^3/uL (0.0-0.8); MONO % 9.4 % (0.0-5.0); NEUTROPHILS # 4.3 10^3/uL (1.5-8.5); PLATELET COUNT, AUTOMATED 171 10^3/uL (150-450); RED BLOOD COUNT 5.91 10^6/uL (4.30-6.10); WHITE BLOOD COUNT 7.7 10^3/uL (4.0-10.0)
[2020-01-28 13:32] LABS: ALBUMIN 3.2 GM/DL (3.2-5.2); ALT/SGPT 14 U/L (12-78); BILIRUBIN,TOTAL 0.5 MG/DL (0.2-1.0); BLOOD UREA NITROGEN 12 MG/DL (7-18); CALCIUM LEVEL 8.4 MG/DL (8.5-10.1); CARBON DIOXIDE LEVEL 27 MEQ/L (21-32); CHLORIDE LEVEL 100 MEQ/L (98-107); CREATININE FOR GFR 0.77 MG/DL (0.70-1.30); GLOMERULAR FILTRATION RATE > 60.0 (>60); GLUCOSE, FASTING 275 MG/DL (70-100); POTASSIUM SERUM 3.3 MEQ/L (3.5-5.1); SODIUM LEVEL 137 MEQ/L (136-145); TOTAL PROTEIN 7.4 GM/DL (6.4-8.2)
[2020-01-28 13:48] LABS: ERYTHROCYTE SEDIMENTATION RATE 10 mm/hr (0-15)
== END ==
LOC: M LAB REF 12:44
PROVIDERS: ATTEND Internal Medicine Infectious Disease
DX: A31.0 Pulmonary mycobacterial infection (principal); J47.1 Bronchiectasis with (acute) exacerbation

== ENCOUNTER → 2020-01-30 | Outpatient (REF) | payer OTHER | LOC: M SHH 11:46 | PROVIDERS: ATTEND Internal Medicine Infectious Disease | DX: A31.0 Pulmonary mycobacterial infection (principal); J47.1 Bronchiectasis with (acute) exacerbation; R74.8 Abnormal levels of other serum enzymes ==

== ENCOUNTER → 2020-02-06 | Outpatient (REF) | payer OTHER ==
[2020-02-06 10:55] LABS: BASO # 0.1 10^3/uL (0.0-0.2); BASO % 0.6 % (0.0-1.0); EOS # 0.4 10^3/uL (0.0-0.5); HEMATOCRIT 45.3 % (42.0-52.0); HEMOGLOBIN 14.8 g/dl (13.5-17.5); LYMPH # 2.2 10^3/uL (1.5-5.0); LYMPH % 23.9 % (24.0-44.0); MEAN CORPUSCULAR HEMOGLOBIN 25.7 pg (27.0-33.0); MEAN CORPUSCULAR HGB CONC 32.7 g/dl (32.0-36.5); MEAN CORPUSCULAR VOLUME 78.6 fl (80.0-96.0); MONO # 0.8 10^3/uL (0.0-0.8); MONO % 8.5 % (0.0-5.0); NEUTROPHILS # 5.7 10^3/uL (1.5-8.5); NEUTROPHILS % 62.7 % (36.0-66.0); PLATELET COUNT, AUTOMATED 248 10^3/uL (150-450); RED BLOOD COUNT 5.76 10^6/uL (4.30-6.10); WHITE BLOOD COUNT 9.1 10^3/uL (4.0-10.0)
[2020-02-06 11:19] LABS: ALBUMIN 3.4 GM/DL (3.2-5.2); ALT/SGPT 56 U/L (12-78); BILIRUBIN,TOTAL 0.4 MG/DL (0.2-1.0); BLOOD UREA NITROGEN 9 MG/DL (7-18); C REACTIVE PROTEIN QUANTITATIV 0.52 MG/DL (0.00-0.30); CALCIUM LEVEL 8.2 MG/DL (8.5-10.1); CARBON DIOXIDE LEVEL 27 MEQ/L (21-32); CHLORIDE LEVEL 104 MEQ/L (98-107); CREATININE FOR GFR 0.72 MG/DL (0.70-1.30); GLOMERULAR FILTRATION RATE > 60.0 (>60); GLUCOSE, FASTING 217 MG/DL (70-100); POTASSIUM SERUM 3.2 MEQ/L (3.5-5.1); SODIUM LEVEL 139 MEQ/L (136-145); TOTAL PROTEIN 7.2 GM/DL (6.4-8.2)
[2020-02-06 11:21] LABS: ERYTHROCYTE SEDIMENTATION RATE 6 mm/hr (0-15)
== END ==
LOC: M SHH 09:51
PROVIDERS: ATTEND Internal Medicine Infectious Disease
DX: A31.0 Pulmonary mycobacterial infection (principal); J47.1 Bronchiectasis with (acute) exacerbation

== ENCOUNTER → 2020-02-07 | Outpatient (REF) | payer OTHER | LOC: M SFHCPLAZ 12:24 | PROVIDERS: ATTEND Internal Medicine Infectious Disease | DX: A31.9 Mycobacterial infection, unspecified (principal) | CPT/HCPCS: 87116; 87206; G0463 ==

== ENCOUNTER → 2020-02-13 | Outpatient (REF) | payer OTHER ==
[2020-02-13 14:11] LABS: BASO # 0.1 10^3/uL (0.0-0.2); BASO % 0.9 % (0.0-1.0); EOS # 0.5 10^3/uL (0.0-0.5); EOS % 5.5 % (0.0-3.0); HEMATOCRIT 45.6 % (42.0-52.0); HEMOGLOBIN 14.4 g/dl (13.5-17.5); LYMPH # 1.7 10^3/uL (1.5-5.0); LYMPH % 20.2 % (24.0-44.0); MEAN CORPUSCULAR HEMOGLOBIN 25.5 pg (27.0-33.0); MEAN CORPUSCULAR HGB CONC 31.6 g/dl (32.0-36.5); MEAN CORPUSCULAR VOLUME 80.7 fl (80.0-96.0); MONO # 0.7 10^3/uL (0.0-0.8); MONO % 8.6 % (0.0-5.0); NEUTROPHILS # 5.5 10^3/uL (1.5-8.5); NEUTROPHILS % 64.2 % (36.0-66.0); PLATELET COUNT, AUTOMATED 227 10^3/uL (150-450); RED BLOOD COUNT 5.65 10^6/uL (4.30-6.10); WHITE BLOOD COUNT 8.6 10^3/uL (4.0-10.0)
[2020-02-13 14:32] LABS: ALBUMIN 3.6 GM/DL (3.2-5.2); ALT/SGPT 31 U/L (12-78); BILIRUBIN,TOTAL 0.7 MG/DL (0.2-1.0); BLOOD UREA NITROGEN 8 MG/DL (7-18); C REACTIVE PROTEIN QUANTITATIV 0.42 MG/DL (0.00-0.30); CALCIUM LEVEL 8.7 MG/DL (8.5-10.1); CARBON DIOXIDE LEVEL 28 MEQ/L (21-32); CHLORIDE LEVEL 105 MEQ/L (98-107); CREATININE FOR GFR 0.68 MG/DL (0.70-1.30); GLOMERULAR FILTRATION RATE > 60.0 (>60); GLUCOSE, FASTING 114 MG/DL (70-100); POTASSIUM SERUM 3.8 MEQ/L (3.5-5.1); SODIUM LEVEL 139 MEQ/L (136-145); TOTAL PROTEIN 7.5 GM/DL (6.4-8.2)
[2020-02-13 14:38] LABS: ERYTHROCYTE SEDIMENTATION RATE 6 mm/hr (0-15)
== END ==
LOC: M SHH 12:32
PROVIDERS: ATTEND Internal Medicine Infectious Disease
DX: A31.0 Pulmonary mycobacterial infection (principal); J47.1 Bronchiectasis with (acute) exacerbation; R74.8 Abnormal levels of other serum enzymes

== ENCOUNTER → 2020-02-27 | Outpatient (REF) | payer OTHER ==
[2020-02-27 12:32] LABS: BASO # 0.1 10^3/uL (0.0-0.2); BASO % 1.2 % (0.0-1.0); EOS # 0.6 10^3/uL (0.0-0.5); EOS % 8.6 % (0.0-3.0); HEMATOCRIT 46.7 % (42.0-52.0); HEMOGLOBIN 14.6 g/dl (13.5-17.5); LYMPH # 2.2 10^3/uL (1.5-5.0); LYMPH % 29.6 % (24.0-44.0); MEAN CORPUSCULAR HEMOGLOBIN 25.4 pg (27.0-33.0); MEAN CORPUSCULAR HGB CONC 31.3 g/dl (32.0-36.5); MEAN CORPUSCULAR VOLUME 81.2 fl (80.0-96.0); MONO # 0.8 10^3/uL (0.0-0.8); MONO % 10.4 % (0.0-5.0); NEUTROPHILS # 3.7 10^3/uL (1.5-8.5); NEUTROPHILS % 49.8 % (36.0-66.0); PLATELET COUNT, AUTOMATED 251 10^3/uL (150-450); RED BLOOD COUNT 5.75 10^6/uL (4.30-6.10); WHITE BLOOD COUNT 7.3 10^3/uL (4.0-10.0)
[2020-02-27 12:59] LABS: ALBUMIN 3.7 GM/DL (3.2-5.2); ALT/SGPT 27 U/L (12-78); BILIRUBIN,TOTAL 0.6 MG/DL (0.2-1.0); BLOOD UREA NITROGEN 9 MG/DL (7-18); C REACTIVE PROTEIN QUANTITATIV 0.79 MG/DL (0.00-0.30); CALCIUM LEVEL 8.6 MG/DL (8.5-10.1); CARBON DIOXIDE LEVEL 30 MEQ/L (21-32); CHLORIDE LEVEL 105 MEQ/L (98-107); CREATININE FOR GFR 0.79 MG/DL (0.70-1.30); GLOMERULAR FILTRATION RATE > 60.0 (>60); GLUCOSE, FASTING 105 MG/DL (70-100); POTASSIUM SERUM 3.7 MEQ/L (3.5-5.1); SODIUM LEVEL 140 MEQ/L (136-145); TOTAL PROTEIN 7.8 GM/DL (6.4-8.2)
[2020-02-27 13:04] LABS: ERYTHROCYTE SEDIMENTATION RATE 3 mm/hr (0-15)
== END ==
LOC: M SHH 11:28
PROVIDERS: ATTEND Internal Medicine Infectious Disease
DX: A31.0 Pulmonary mycobacterial infection (principal); J47.1 Bronchiectasis with (acute) exacerbation; R74.8 Abnormal levels of other serum enzymes

== ENCOUNTER → 2020-03-10 | Outpatient (CLI) | payer OTHER ==
--- NOTE | 2020-03-13 07:30 | REP ---
Clinical: History of interstitial pulmonary disease. Technique: Axial noncontrast images from the thoracic inlet to the upper abdomen with coronal and sagittal re-formations. Comparison: 10/10/2019. Findings: The bilateral lung rogers again demonstrate chronic patchy scattered interstitial infiltrates with primarily lower lobe ground-glass opacities and subtle elements of subpleural fibrosis which appear essentially unchanged. Mild bronchiectasis is again noted as well. A 4 mm nodule in the anterior left lower lobe (image 68) along with 5 mm noncalcified nodule in the periphery of the right lower lobe (image 69) appear relatively unchanged. Smaller nodular densities obscured by the ground-glass opacities in the left lower lobe cannot be excluded as well. No new acute consolidation identified. No mass lesion. No effusion. No pneumothorax. Innumerable sub centimeter mediastinal/hilar lymph nodes are again noted and appear relatively unchanged. Thoracic aorta appears normal. Cardiomegaly suggested without pericardial effusion. Surrounding musculoskeletal structures without obvious osseous abnormality. Kdjora-X-Nehr noted with tip in the SVC. Impression: 1. Patchy ill-defined primarily interstitial infiltrates along with mild bronchiectasis, lower lobe ground-glass opacities, and subtle areas of subpleural fibrosis again noted and relatively similar to prior examination. Few scattered noncalcified nodules are also again identified and essentially unchanged although evaluation is limited due to surrounding ground-glass opacities at the bases. 2. No obvious new acute process appreciated. Electronically Signed by Alfredo Hernandez MD 03/13/2020 07:22 A
== END ==
LOC: M RAD 07:52
PROVIDERS: ATTEND Internal Medicine Pulmonary Disease
DX: J84.9 Interstitial pulmonary disease, unspecified (principal); R91.8 Other nonspecific abnormal finding of lung field

== ENCOUNTER → 2020-03-12 | Outpatient (REF) | payer OTHER ==
[2020-03-12 11:18] LABS: BASO # 0.1 10^3/uL (0.0-0.2); BASO % 0.8 % (0.0-1.0); EOS # 0.6 10^3/uL (0.0-0.5); EOS % 7.4 % (0.0-3.0); HEMATOCRIT 44.3 % (42.0-52.0); HEMOGLOBIN 14.2 g/dl (13.5-17.5); LYMPH # 2.3 10^3/uL (1.5-5.0); LYMPH % 30.7 % (24.0-44.0); MEAN CORPUSCULAR HEMOGLOBIN 25.8 pg (27.0-33.0); MEAN CORPUSCULAR HGB CONC 32.1 g/dl (32.0-36.5); MEAN CORPUSCULAR VOLUME 80.4 fl (80.0-96.0); MONO # 0.8 10^3/uL (0.0-0.8); MONO % 10.7 % (0.0-5.0); NEUTROPHILS # 3.8 10^3/uL (1.5-8.5); PLATELET COUNT, AUTOMATED 263 10^3/uL (150-450); RED BLOOD COUNT 5.51 10^6/uL (4.30-6.10); WHITE BLOOD COUNT 7.6 10^3/uL (4.0-10.0)
[2020-03-12 11:42] LABS: ERYTHROCYTE SEDIMENTATION RATE 9 mm/hr (0-15)
[2020-03-12 12:19] LABS: ALBUMIN 3.6 GM/DL (3.2-5.2); ALT/SGPT 40 U/L (12-78); BILIRUBIN,TOTAL 0.4 MG/DL (0.2-1.0); BLOOD UREA NITROGEN 11 MG/DL (7-18); C REACTIVE PROTEIN QUANTITATIV 0.42 MG/DL (0.00-0.30); CALCIUM LEVEL 8.6 MG/DL (8.5-10.1); CARBON DIOXIDE LEVEL 26 MEQ/L (21-32); CHLORIDE LEVEL 108 MEQ/L (98-107); GLOMERULAR FILTRATION RATE > 60.0 (>60); GLUCOSE, FASTING 80 MG/DL (70-100); POTASSIUM SERUM 3.7 MEQ/L (3.5-5.1); SODIUM LEVEL 144 MEQ/L (136-145); TOTAL PROTEIN 7.7 GM/DL (6.4-8.2)
== END ==
LOC: M LAB REF 11:05
PROVIDERS: ATTEND Internal Medicine Infectious Disease
DX: A31.0 Pulmonary mycobacterial infection (principal); J47.1 Bronchiectasis with (acute) exacerbation; R74.8 Abnormal levels of other serum enzymes

== ENCOUNTER → 2020-03-13 | Outpatient (REF) | payer OTHER | LOC: M SFHCPLAZ 15:18 | PROVIDERS: ATTEND Internal Medicine Infectious Disease | DX: A31.9 Mycobacterial infection, unspecified (principal) ==

== ENCOUNTER → 2020-03-26 | Outpatient (REF) | payer OTHER ==
[2020-03-26 11:08] LABS: BASO # 0.1 10^3/uL (0.0-0.2); BASO % 0.9 % (0.0-1.0); EOS # 0.6 10^3/uL (0.0-0.5); EOS % 7.9 % (0.0-3.0); HEMOGLOBIN 14.5 g/dl (13.5-17.5); LYMPH # 2.2 10^3/uL (1.5-5.0); LYMPH % 29.6 % (24.0-44.0); MEAN CORPUSCULAR HEMOGLOBIN 25.8 pg (27.0-33.0); MEAN CORPUSCULAR HGB CONC 32.2 g/dl (32.0-36.5); MEAN CORPUSCULAR VOLUME 80.2 fl (80.0-96.0); MONO # 0.8 10^3/uL (0.0-0.8); MONO % 10.4 % (0.0-5.0); NEUTROPHILS # 3.8 10^3/uL (1.5-8.5); NEUTROPHILS % 50.8 % (36.0-66.0); PLATELET COUNT, AUTOMATED 226 10^3/uL (150-450); RED BLOOD COUNT 5.61 10^6/uL (4.30-6.10); WHITE BLOOD COUNT 7.6 10^3/uL (4.0-10.0)
[2020-03-26 11:28] LABS: ERYTHROCYTE SEDIMENTATION RATE 11 mm/hr (0-15)
[2020-03-26 12:04] LABS: ALBUMIN 3.9 GM/DL (3.2-5.2); ALT/SGPT 55 U/L (12-78); BILIRUBIN,TOTAL 1.3 MG/DL (0.2-1.0); BLOOD UREA NITROGEN 9 MG/DL (7-18); C REACTIVE PROTEIN QUANTITATIV 0.83 MG/DL (0.00-0.30); CALCIUM LEVEL 8.1 MG/DL (8.5-10.1); CARBON DIOXIDE LEVEL 30 MEQ/L (21-32); CHLORIDE LEVEL 99 MEQ/L (98-107); CREATININE FOR GFR 0.81 MG/DL (0.70-1.30); GLOMERULAR FILTRATION RATE > 60.0 (>60); GLUCOSE, FASTING 86 MG/DL (70-100); POTASSIUM SERUM 3.1 MEQ/L (3.5-5.1); SODIUM LEVEL 135 MEQ/L (136-145); TOTAL PROTEIN 8.1 GM/DL (6.4-8.2)
[2020-03-26 12:06] LABS: HEMOGLOBIN A1c 7.1 %
== END ==
LOC: M SHH 10:39
PROVIDERS: ATTEND Internal Medicine Infectious Disease
DX: J47.1 Bronchiectasis with (acute) exacerbation (principal); A31.0 Pulmonary mycobacterial infection; R74.8 Abnormal levels of other serum enzymes; E11.9 Type 2 diabetes mellitus without complications

== ENCOUNTER → 2020-04-09 | Outpatient (REF) | payer OTHER ==
[2020-04-09 11:33] LABS: BASO # 0.1 10^3/uL (0.0-0.2); EOS # 0.4 10^3/uL (0.0-0.5); EOS % 5.4 % (0.0-3.0); HEMATOCRIT 44.7 % (42.0-52.0); HEMOGLOBIN 14.4 g/dl (13.5-17.5); LYMPH # 1.9 10^3/uL (1.5-5.0); LYMPH % 24.6 % (24.0-44.0); MEAN CORPUSCULAR HEMOGLOBIN 26.2 pg (27.0-33.0); MEAN CORPUSCULAR HGB CONC 32.2 g/dl (32.0-36.5); MEAN CORPUSCULAR VOLUME 81.3 fl (80.0-96.0); MONO # 0.8 10^3/uL (0.0-0.8); MONO % 9.8 % (0.0-5.0); NEUTROPHILS # 4.6 10^3/uL (1.5-8.5); NEUTROPHILS % 58.9 % (36.0-66.0); PLATELET COUNT, AUTOMATED 243 10^3/uL (150-450); WHITE BLOOD COUNT 7.7 10^3/uL (4.0-10.0)
[2020-04-09 12:00] LABS: BLOOD UREA NITROGEN 13 MG/DL (7-18); CREATININE FOR GFR 0.71 MG/DL (0.70-1.30); GLUCOSE, FASTING 73 MG/DL (70-100)
[2020-04-09 12:01] LABS: ALBUMIN 3.7 GM/DL (3.2-5.2); ALT/SGPT 35 U/L (12-78); BILIRUBIN,TOTAL 0.3 MG/DL (0.2-1.0); C REACTIVE PROTEIN QUANTITATIV 0.89 MG/DL (0.00-0.30); CALCIUM LEVEL 8.5 MG/DL (8.5-10.1); CARBON DIOXIDE LEVEL 30 MEQ/L (21-32); CHLORIDE LEVEL 104 MEQ/L (98-107); GLOMERULAR FILTRATION RATE > 60.0 (>60); POTASSIUM SERUM 3.6 MEQ/L (3.5-5.1); SODIUM LEVEL 137 MEQ/L (136-145); TOTAL PROTEIN 7.9 GM/DL (6.4-8.2)
[2020-04-09 12:12] LABS: ERYTHROCYTE SEDIMENTATION RATE 11 mm/hr (0-15)
== END ==
LOC: M SHH 10:34
PROVIDERS: ATTEND Internal Medicine Infectious Disease
DX: A31.0 Pulmonary mycobacterial infection (principal); J47.1 Bronchiectasis with (acute) exacerbation; R74.8 Abnormal levels of other serum enzymes

== ENCOUNTER → 2020-04-10 | Outpatient (REF) | payer OTHER | LOC: M SFHCPLAZ 16:32 | PROVIDERS: ATTEND Internal Medicine Infectious Disease | DX: A31.9 Mycobacterial infection, unspecified (principal) | CPT/HCPCS: 87116; 87206; G0463 ==

== ENCOUNTER → 2020-04-23 | Outpatient (REF) | payer OTHER ==
[2020-04-23 10:44] LABS: BASO # 0.1 10^3/uL (0.0-0.2); BASO % 1.1 % (0.0-1.0); EOS # 0.5 10^3/uL (0.0-0.5); EOS % 6.6 % (0.0-3.0); HEMATOCRIT 46.4 % (42.0-52.0); LYMPH # 2.1 10^3/uL (1.5-5.0); LYMPH % 27.9 % (24.0-44.0); MEAN CORPUSCULAR HEMOGLOBIN 26.4 pg (27.0-33.0); MEAN CORPUSCULAR HGB CONC 32.3 g/dl (32.0-36.5); MEAN CORPUSCULAR VOLUME 81.5 fl (80.0-96.0); MONO # 0.8 10^3/uL (0.0-0.8); MONO % 10.4 % (0.0-5.0); NEUTROPHILS % 53.7 % (36.0-66.0); PLATELET COUNT, AUTOMATED 271 10^3/uL (150-450); RED BLOOD COUNT 5.69 10^6/uL (4.30-6.10); WHITE BLOOD COUNT 7.4 10^3/uL (4.0-10.0)
[2020-04-23 11:03] LABS: ERYTHROCYTE SEDIMENTATION RATE 8 mm/hr (0-15)
[2020-04-23 11:07] LABS: ALBUMIN 3.7 GM/DL (3.2-5.2); ALT/SGPT 27 U/L (12-78); BILIRUBIN,TOTAL 0.5 MG/DL (0.2-1.0); BLOOD UREA NITROGEN 11 MG/DL (7-18); C REACTIVE PROTEIN QUANTITATIV 0.83 MG/DL (0.00-0.30); CALCIUM LEVEL 8.8 MG/DL (8.5-10.1); CARBON DIOXIDE LEVEL 28 MEQ/L (21-32); CHLORIDE LEVEL 106 MEQ/L (98-107); CREATININE FOR GFR 0.78 MG/DL (0.70-1.30); GLOMERULAR FILTRATION RATE > 60.0 (>60); GLUCOSE, FASTING 103 MG/DL (70-100); POTASSIUM SERUM 3.9 MEQ/L (3.5-5.1); SODIUM LEVEL 141 MEQ/L (136-145); TOTAL PROTEIN 8.1 GM/DL (6.4-8.2)
== END ==
LOC: M SHH 10:12
PROVIDERS: ATTEND Internal Medicine Infectious Disease
DX: A31.0 Pulmonary mycobacterial infection (principal); J47.1 Bronchiectasis with (acute) exacerbation; R74.8 Abnormal levels of other serum enzymes

== ENCOUNTER → 2020-05-19 | Outpatient (CLI) | payer OTHER ==
--- NOTE | 2020-07-11 13:51 | SLEEPCENT ---
DATE: 05/19/2020 ORDERED BY: Dr. Solis Nocturnal polysomnography was performed for evaluation of sleep physiology in this patient with a history of excessive somnolence and nonrestorative sleep. Seven hours and 17 minutes of data were reviewed. There were 195 minutes of sleep identified. Sleep latency was prolonged at 49 minutes. REM latency was prolonged at 136 minutes. Sleep architecture was fair. The patient woke early. There was a reduced sleep efficiency at 45.1%. The electrocardiogram showed a sinus rhythm with an average heart rate 90 beats per minutes. EEG showed reasonably normal waveforms for wake and sleep. There were 23 respiratory events identified of ten seconds in duration or greater for an apnea-hypopnea index of 7.1. The events were primarily obstructive, not exclusive to sleep stage nor body posture. Arousals from respiratory events occurred 2.8 times per hour and oxygen desaturations were seen below 90%. There was some minor limb activity and remaining measures of sleep physiology were normal. IMPRESSION AND PLAN: Obstructive sleep apnea syndrome (G47.33), apnea-hypopnea index 7.1. RECOMMENDATIONS: The patient should be encouraged to return to [facility] for pressure therapy. In the interim, alcohol and sedative avoidance should be practiced and caution exercised during the operation of motor vehicles. BILLYD
== END ==
LOC: M SLEEP 20:00
PROVIDERS: ATTEND Internal Medicine Pulmonary Disease
DX: G47.33 Obstructive sleep apnea (adult) (pediatric) (principal)

== ENCOUNTER → 2020-06-11 | Outpatient (REF) | payer OTHER ==
[2020-07-12 10:32] LABS: BASO # 0.1 10^3/uL (0.0-0.2); BASO % 0.7 % (0.0-1.0); EOS # 0.4 10^3/uL (0.0-0.5); EOS % 5.1 % (0.0-3.0); ERYTHROCYTE SEDIMENTATION RATE 7 mm/hr (0-15); HEMATOCRIT 46.3 % (42.0-52.0); HEMOGLOBIN 14.9 g/dl (13.5-17.5); MEAN CORPUSCULAR HEMOGLOBIN 26.4 pg (27.0-33.0); MEAN CORPUSCULAR HGB CONC 32.2 g/dl (32.0-36.5); MEAN CORPUSCULAR VOLUME 81.9 fl (80.0-96.0); MONO # 0.8 10^3/uL (0.0-0.8); MONO % 9.9 % (0.0-5.0); NEUTROPHILS % 60.2 % (36.0-66.0); PLATELET COUNT, AUTOMATED 247 10^3/uL (150-450); RED BLOOD COUNT 5.65 10^6/uL (4.30-6.10); WHITE BLOOD COUNT 8.4 10^3/uL (4.0-10.0)
[2020-07-25 22:12] LABS: ALBUMIN 3.6 GM/DL (3.2-5.2); ALT/SGPT 46 U/L (12-78); BILIRUBIN,TOTAL 0.4 MG/DL (0.2-1.0); BLOOD UREA NITROGEN 11 MG/DL (7-18); C REACTIVE PROTEIN QUANTITATIV 0.94 MG/DL (0.00-0.30); CALCIUM LEVEL 8.3 MG/DL (8.5-10.1); CARBON DIOXIDE LEVEL 28 MEQ/L (21-32); CHLORIDE LEVEL 105 MEQ/L (98-107); CREATININE FOR GFR 0.88 MG/DL (0.70-1.30); GLOMERULAR FILTRATION RATE > 60.0 (>60); GLUCOSE, FASTING 96 MG/DL (70-100); SODIUM LEVEL 137 MEQ/L (136-145); TOTAL PROTEIN 7.9 GM/DL (6.4-8.2)
== END ==
LOC: M SHH 14:55
PROVIDERS: ATTEND Internal Medicine Infectious Disease
DX: A31.0 Pulmonary mycobacterial infection (principal); J47.1 Bronchiectasis with (acute) exacerbation; R74.8 Abnormal levels of other serum enzymes; R73.9 Hyperglycemia, unspecified

== ENCOUNTER → 2020-06-17 | Outpatient (REF) | payer OTHER | LOC: M SFHCPLAZ 11:29 | PROVIDERS: ATTEND Internal Medicine Infectious Disease | DX: A31.0 Pulmonary mycobacterial infection (principal); J47.1 Bronchiectasis with (acute) exacerbation ==

== ENCOUNTER → 2020-06-25 | Outpatient (REF) | payer OTHER ==
[2020-06-25 14:05] LABS: BASO # 0.1 10^3/uL (0.0-0.2); BASO % 0.9 % (0.0-1.0); EOS # 0.3 10^3/uL (0.0-0.5); EOS % 4.8 % (0.0-3.0); HEMATOCRIT 45.2 % (42.0-52.0); HEMOGLOBIN 14.5 g/dl (13.5-17.5); LYMPH # 1.6 10^3/uL (1.5-5.0); LYMPH % 25.1 % (24.0-44.0); MEAN CORPUSCULAR HEMOGLOBIN 26.4 pg (27.0-33.0); MEAN CORPUSCULAR HGB CONC 32.1 g/dl (32.0-36.5); MEAN CORPUSCULAR VOLUME 82.3 fl (80.0-96.0); MONO # 0.7 10^3/uL (0.0-0.8); MONO % 10.6 % (0.0-5.0); NEUTROPHILS # 3.8 10^3/uL (1.5-8.5); NEUTROPHILS % 58.3 % (36.0-66.0); PLATELET COUNT, AUTOMATED 220 10^3/uL (150-450); RED BLOOD COUNT 5.49 10^6/uL (4.30-6.10); WHITE BLOOD COUNT 6.5 10^3/uL (4.0-10.0)
[2020-06-25 14:47] LABS: ALBUMIN 3.5 GM/DL (3.2-5.2); ALT/SGPT 27 U/L (12-78); BILIRUBIN,TOTAL 0.6 MG/DL (0.2-1.0); BLOOD UREA NITROGEN 12 MG/DL (7-18); C REACTIVE PROTEIN QUANTITATIV 0.47 MG/DL (0.00-0.30); CALCIUM LEVEL 8.3 MG/DL (8.5-10.1); CARBON DIOXIDE LEVEL 26 MEQ/L (21-32); CHLORIDE LEVEL 108 MEQ/L (98-107); CREATININE FOR GFR 0.87 MG/DL (0.70-1.30); GLOMERULAR FILTRATION RATE > 60.0 (>60); GLUCOSE, FASTING 120 MG/DL (70-100); POTASSIUM SERUM 3.8 MEQ/L (3.5-5.1); SODIUM LEVEL 142 MEQ/L (136-145); TOTAL PROTEIN 7.4 GM/DL (6.4-8.2)
[2020-06-25 15:09] LABS: ERYTHROCYTE SEDIMENTATION RATE 12 mm/hr (0-15)
== END ==
LOC: M SHH 12:37
PROVIDERS: ATTEND Internal Medicine Infectious Disease
DX: A31.0 Pulmonary mycobacterial infection (principal); J47.1 Bronchiectasis with (acute) exacerbation; R74.8 Abnormal levels of other serum enzymes; R73.9 Hyperglycemia, unspecified

== ENCOUNTER → 2020-06-26 | Outpatient (CLI) | payer OTHER ==
--- NOTE | 2020-07-07 13:11 | REP ---
NONCONTRAST CHEST CT: HISTORY: History of mycobacterium avium complex infection. TECHNIQUE: Axial noncontrast images from the thoracic inlet to the upper abdomen with coronal and sagittal reformations. COMPARISON: 03/10/20 FINDINGS: The bilateral lung rogers again demonstrate chronic patchy scattered interstitial infiltrates with areas of lower lobe ground glass opacity, scattered fibrosis and mild bronchiectasis, essentially unchanged in appearance from prior examinations. Small scattered nodules, including a 4 mm nodule in the left lower lobe and a 5 mm nodule in the right lower lobe are again noted and similar on examination without significant change. No significant new area of discrete consolidation or mass. No effusion. No pneumothorax. Mediastinal and hilar adenopathy including multiple small anterior mediastinal lymph nodes and/or residual thymic tissue is again noted and unchanged. Further evaluation of the mediastinum demonstrate normal thoracic aorta, pulmonary vasculature and heart/pericardium. Limited upper abdomen demonstrates normal bilateral adrenal glands. Surrounding musculoskeletal structures are intact. Infusaport identified with tip extending into the SVC. IMPRESSION: 1. Patchy bilateral interstitial infiltrates with lower lobe ground glass opacities, scattered fibrosis and bronchiectasis as well as small scattered noncalcified nodules, essentially unchanged from prior examination and consistent with the given history of mycobacterium avium complex infection. 2. No new acute mediastinal or pleuroparenchymal process appreciated. MTDD
== END ==
LOC: M RAD 07:39
PROVIDERS: ATTEND Internal Medicine Infectious Disease
DX: A31.0 Pulmonary mycobacterial infection (principal)

== ENCOUNTER → 2020-07-10 | Outpatient (REF) | payer OTHER ==
[2020-07-10 16:19] LABS: BASO # 0.1 10^3/uL (0.0-0.2); BASO % 0.8 % (0.0-1.0); EOS # 0.3 10^3/uL (0.0-0.5); EOS % 4.2 % (0.0-3.0); HEMATOCRIT 46.7 % (42.0-52.0); HEMOGLOBIN 15.1 g/dl (13.5-17.5); LYMPH # 1.9 10^3/uL (1.5-5.0); LYMPH % 25.3 % (24.0-44.0); MEAN CORPUSCULAR HEMOGLOBIN 26.3 pg (27.0-33.0); MEAN CORPUSCULAR HGB CONC 32.3 g/dl (32.0-36.5); MEAN CORPUSCULAR VOLUME 81.4 fl (80.0-96.0); MONO # 0.9 10^3/uL (0.0-0.8); MONO % 11.3 % (0.0-5.0); NEUTROPHILS # 4.4 10^3/uL (1.5-8.5); NEUTROPHILS % 57.9 % (36.0-66.0); PLATELET COUNT, AUTOMATED 255 10^3/uL (150-450); RED BLOOD COUNT 5.74 10^6/uL (4.30-6.10); WHITE BLOOD COUNT 7.6 10^3/uL (4.0-10.0)
[2020-07-10 16:44] LABS: ERYTHROCYTE SEDIMENTATION RATE 7 mm/hr (0-15)
[2020-07-10 16:48] LABS: ALBUMIN 3.8 GM/DL (3.2-5.2); ALT/SGPT 44 U/L (12-78); BILIRUBIN,TOTAL 0.4 MG/DL (0.2-1.0); BLOOD UREA NITROGEN 13 MG/DL (7-18); C REACTIVE PROTEIN QUANTITATIV 0.88 MG/DL (0.00-0.30); CALCIUM LEVEL 8.8 MG/DL (8.5-10.1); CARBON DIOXIDE LEVEL 30 MEQ/L (21-32); CHLORIDE LEVEL 103 MEQ/L (98-107); CREATININE FOR GFR 0.81 MG/DL (0.70-1.30); GLOMERULAR FILTRATION RATE > 60.0 (>60); GLUCOSE, FASTING 85 MG/DL (70-100); POTASSIUM SERUM 3.8 MEQ/L (3.5-5.1); SODIUM LEVEL 136 MEQ/L (136-145); TOTAL PROTEIN 8.1 GM/DL (6.4-8.2)
== END ==
LOC: M SHH 14:13
PROVIDERS: ATTEND Internal Medicine Infectious Disease
DX: A31.0 Pulmonary mycobacterial infection (principal); J47.1 Bronchiectasis with (acute) exacerbation; R74.8 Abnormal levels of other serum enzymes; R73.9 Hyperglycemia, unspecified

== ENCOUNTER → 2020-07-24 | Outpatient (REF) | payer OTHER ==
[2020-07-24 14:43] LABS: BASO # 0.1 10^3/uL (0.0-0.2); BASO % 0.8 % (0.0-1.0); EOS # 0.3 10^3/uL (0.0-0.5); EOS % 2.9 % (0.0-3.0); HEMOGLOBIN 14.8 g/dl (13.5-17.5); LYMPH # 1.6 10^3/uL (1.5-5.0); LYMPH % 17.2 % (24.0-44.0); MEAN CORPUSCULAR HEMOGLOBIN 26.7 pg (27.0-33.0); MEAN CORPUSCULAR HGB CONC 32.9 g/dl (32.0-36.5); MEAN CORPUSCULAR VOLUME 81.2 fl (80.0-96.0); MONO # 0.8 10^3/uL (0.0-0.8); MONO % 8.6 % (0.0-5.0); NEUTROPHILS # 6.5 10^3/uL (1.5-8.5); PLATELET COUNT, AUTOMATED 239 10^3/uL (150-450); RED BLOOD COUNT 5.54 10^6/uL (4.30-6.10); WHITE BLOOD COUNT 9.3 10^3/uL (4.0-10.0)
[2020-07-24 15:13] LABS: ERYTHROCYTE SEDIMENTATION RATE 6 mm/hr (0-15)
[2020-07-24 15:14] LABS: ALBUMIN 3.7 GM/DL (3.2-5.2); ALT/SGPT 34 U/L (12-78); BILIRUBIN,TOTAL 0.3 MG/DL (0.2-1.0); BLOOD UREA NITROGEN 11 MG/DL (7-18); C REACTIVE PROTEIN QUANTITATIV 1.45 MG/DL (0.00-0.30); CALCIUM LEVEL 8.2 MG/DL (8.5-10.1); CARBON DIOXIDE LEVEL 30 MEQ/L (21-32); CHLORIDE LEVEL 104 MEQ/L (98-107); CREATININE FOR GFR 0.88 MG/DL (0.70-1.30); GLOMERULAR FILTRATION RATE > 60.0 (>60); GLUCOSE, FASTING 159 MG/DL (70-100); POTASSIUM SERUM 3.7 MEQ/L (3.5-5.1); SODIUM LEVEL 138 MEQ/L (136-145); TOTAL PROTEIN 7.9 GM/DL (6.4-8.2)
== END ==
LOC: M SHH 14:07
PROVIDERS: ATTEND Internal Medicine Infectious Disease
DX: R74.8 Abnormal levels of other serum enzymes (principal); R73.9 Hyperglycemia, unspecified; A31.0 Pulmonary mycobacterial infection; J47.1 Bronchiectasis with (acute) exacerbation

== ENCOUNTER → 2020-08-04 | Outpatient (REF) | payer OTHER ==
[2020-08-04 14:38] LABS: BASO # 0.1 10^3/uL (0.0-0.2); BASO % 0.7 % (0.0-1.0); EOS # 0.2 10^3/uL (0.0-0.5); EOS % 1.9 % (0.0-3.0); HEMATOCRIT 48.4 % (42.0-52.0); HEMOGLOBIN 15.1 g/dl (13.5-17.5); LYMPH # 2.9 10^3/uL (1.5-5.0); LYMPH % 24.9 % (24.0-44.0); MEAN CORPUSCULAR HEMOGLOBIN 25.9 pg (27.0-33.0); MEAN CORPUSCULAR HGB CONC 31.2 g/dl (32.0-36.5); MEAN CORPUSCULAR VOLUME 83.2 fl (80.0-96.0); MONO # 0.9 10^3/uL (0.0-0.8); MONO % 8.1 % (0.0-5.0); NEUTROPHILS # 7.5 10^3/uL (1.5-8.5); NEUTROPHILS % 64.1 % (36.0-66.0); PLATELET COUNT, AUTOMATED 256 10^3/uL (150-450); RED BLOOD COUNT 5.82 10^6/uL (4.30-6.10); WHITE BLOOD COUNT 11.7 10^3/uL (4.0-10.0)
[2020-08-04 14:44] LABS: ALBUMIN 3.6 GM/DL (3.2-5.2); ALT/SGPT 51 U/L (12-78); BILIRUBIN,TOTAL 0.3 MG/DL (0.2-1.0); BLOOD UREA NITROGEN 20 MG/DL (7-18); C REACTIVE PROTEIN QUANTITATIV 0.72 MG/DL (0.00-0.30); CALCIUM LEVEL 8.8 MG/DL (8.5-10.1); CARBON DIOXIDE LEVEL 29 MEQ/L (21-32); CHLORIDE LEVEL 103 MEQ/L (98-107); CREATININE FOR GFR 0.99 MG/DL (0.70-1.30); GLOMERULAR FILTRATION RATE > 60.0 (>60); GLUCOSE, FASTING 127 MG/DL (70-100); POTASSIUM SERUM 3.6 MEQ/L (3.5-5.1); SODIUM LEVEL 138 MEQ/L (136-145); TOTAL PROTEIN 7.9 GM/DL (6.4-8.2)
[2020-08-04 15:12] LABS: ERYTHROCYTE SEDIMENTATION RATE 5 mm/hr (0-15)
== END ==
LOC: M SHH 12:40
PROVIDERS: ATTEND Internal Medicine Infectious Disease
DX: A31.0 Pulmonary mycobacterial infection (principal); J47.1 Bronchiectasis with (acute) exacerbation; R74.8 Abnormal levels of other serum enzymes; R73.9 Hyperglycemia, unspecified

== ENCOUNTER → 2020-08-20 | Outpatient (REF) | payer OTHER ==
[2020-08-20 13:00] LABS: BASO # 0.1 10^3/uL (0.0-0.2); BASO % 1.1 % (0.0-1.0); EOS # 0.3 10^3/uL (0.0-0.5); HEMOGLOBIN 15.4 g/dl (13.5-17.5); LYMPH # 2.2 10^3/uL (1.5-5.0); LYMPH % 30.8 % (24.0-44.0); MEAN CORPUSCULAR HGB CONC 31.4 g/dl (32.0-36.5); MEAN CORPUSCULAR VOLUME 82.6 fl (80.0-96.0); MONO # 0.6 10^3/uL (0.0-0.8); MONO % 7.7 % (0.0-5.0); PLATELET COUNT, AUTOMATED 244 10^3/uL (150-450); RED BLOOD COUNT 5.93 10^6/uL (4.30-6.10); WHITE BLOOD COUNT 7.2 10^3/uL (4.0-10.0)
[2020-08-20 13:34] LABS: ALBUMIN 3.4 GM/DL (3.2-5.2); ALT/SGPT 34 U/L (12-78); BILIRUBIN,TOTAL 0.3 MG/DL (0.2-1.0); BLOOD UREA NITROGEN 9 MG/DL (7-18); C REACTIVE PROTEIN QUANTITATIV 0.89 MG/DL (0.00-0.30); CALCIUM LEVEL 8.1 MG/DL (8.5-10.1); CARBON DIOXIDE LEVEL 26 MEQ/L (21-32); CHLORIDE LEVEL 104 MEQ/L (98-107); CREATININE FOR GFR 1.04 MG/DL (0.70-1.30); GLOMERULAR FILTRATION RATE > 60.0 (>60); GLUCOSE, FASTING 194 MG/DL (70-100); POTASSIUM SERUM 3.6 MEQ/L (3.5-5.1); SODIUM LEVEL 136 MEQ/L (136-145); TOTAL PROTEIN 7.6 GM/DL (6.4-8.2)
[2020-08-20 13:37] LABS: ERYTHROCYTE SEDIMENTATION RATE 5 mm/hr (0-15)
== END ==
LOC: M LAB REF 12:30
PROVIDERS: ATTEND Internal Medicine Infectious Disease
DX: A31.0 Pulmonary mycobacterial infection (principal); J47.1 Bronchiectasis with (acute) exacerbation; R74.8 Abnormal levels of other serum enzymes; R73.9 Hyperglycemia, unspecified

== ENCOUNTER → 2020-09-04 | Outpatient (REF) | payer OTHER ==
[2020-09-04 11:53] LABS: BASO # 0.1 10^3/uL (0.0-0.2); BASO % 0.6 % (0.0-1.0); EOS # 0.3 10^3/uL (0.0-0.5); EOS % 2.1 % (0.0-3.0); HEMATOCRIT 46.5 % (42.0-52.0); HEMOGLOBIN 14.3 g/dl (13.5-17.5); LYMPH # 1.9 10^3/uL (1.5-5.0); LYMPH % 15.7 % (24.0-44.0); MEAN CORPUSCULAR HEMOGLOBIN 25.4 pg (27.0-33.0); MEAN CORPUSCULAR HGB CONC 30.8 g/dl (32.0-36.5); MEAN CORPUSCULAR VOLUME 82.4 fl (80.0-96.0); MONO % 8.1 % (0.0-5.0); NEUTROPHILS # 8.7 10^3/uL (1.5-8.5); NEUTROPHILS % 73.1 % (36.0-66.0); PLATELET COUNT, AUTOMATED 294 10^3/uL (150-450); RED BLOOD COUNT 5.64 10^6/uL (4.30-6.10)
[2020-09-04 12:14] LABS: ALBUMIN 3.8 GM/DL (3.2-5.2); ALT/SGPT 20 U/L (12-78); BILIRUBIN,TOTAL 0.3 MG/DL (0.2-1.0); BLOOD UREA NITROGEN 10 MG/DL (7-18); C REACTIVE PROTEIN QUANTITATIV 1.84 MG/DL (0.00-0.30); CALCIUM LEVEL 8.8 MG/DL (8.5-10.1); CARBON DIOXIDE LEVEL 28 MEQ/L (21-32); CHLORIDE LEVEL 106 MEQ/L (98-107); CREATININE FOR GFR 0.95 MG/DL (0.70-1.30); GLOMERULAR FILTRATION RATE > 60.0 (>60); GLUCOSE, FASTING 89 MG/DL (70-100); POTASSIUM SERUM 4.1 MEQ/L (3.5-5.1); SODIUM LEVEL 140 MEQ/L (136-145); TOTAL PROTEIN 8.2 GM/DL (6.4-8.2)
[2020-09-04 12:34] LABS: ERYTHROCYTE SEDIMENTATION RATE 15 mm/hr (0-15)
== END ==
LOC: M LAB REF 11:07
PROVIDERS: ATTEND Internal Medicine Infectious Disease
DX: A31.0 Pulmonary mycobacterial infection (principal); J47.1 Bronchiectasis with (acute) exacerbation; R74.8 Abnormal levels of other serum enzymes; R73.9 Hyperglycemia, unspecified

== ENCOUNTER → 2020-09-16 | Outpatient (REF) | payer OTHER ==
[2020-09-16 13:14] LABS: BASO # 0.1 10^3/uL (0.0-0.2); BASO % 0.6 % (0.0-1.0); EOS # 0.3 10^3/uL (0.0-0.5); EOS % 2.7 % (0.0-3.0); HEMATOCRIT 50.1 % (42.0-52.0); HEMOGLOBIN 15.6 g/dl (13.5-17.5); LYMPH # 2.2 10^3/uL (1.5-5.0); LYMPH % 18.2 % (24.0-44.0); MEAN CORPUSCULAR HEMOGLOBIN 25.1 pg (27.0-33.0); MEAN CORPUSCULAR HGB CONC 31.1 g/dl (32.0-36.5); MEAN CORPUSCULAR VOLUME 80.5 fl (80.0-96.0); MONO # 1.1 10^3/uL (0.0-0.8); MONO % 8.7 % (0.0-5.0); NEUTROPHILS # 8.5 10^3/uL (1.5-8.5); NEUTROPHILS % 69.2 % (36.0-66.0); PLATELET COUNT, AUTOMATED 294 10^3/uL (150-450); RED BLOOD COUNT 6.22 10^6/uL (4.30-6.10); WHITE BLOOD COUNT 12.3 10^3/uL (4.0-10.0)
[2020-09-16 13:43] LABS: ERYTHROCYTE SEDIMENTATION RATE 8 mm/hr (0-15)
[2020-09-16 13:56] LABS: ALBUMIN 4.1 GM/DL (3.2-5.2); ALT/SGPT 30 U/L (12-78); BILIRUBIN,TOTAL 0.6 MG/DL (0.2-1.0); BLOOD UREA NITROGEN 14 MG/DL (7-18); C REACTIVE PROTEIN QUANTITATIV 1.07 MG/DL (0.00-0.30); CALCIUM LEVEL 9.2 MG/DL (8.5-10.1); CARBON DIOXIDE LEVEL 29 MEQ/L (21-32); CHLORIDE LEVEL 101 MEQ/L (98-107); CREATININE FOR GFR 0.93 MG/DL (0.70-1.30); GLOMERULAR FILTRATION RATE > 60.0 (>60); GLUCOSE, FASTING 147 MG/DL (70-100); POTASSIUM SERUM 3.8 MEQ/L (3.5-5.1); SODIUM LEVEL 136 MEQ/L (136-145); TOTAL PROTEIN 8.9 GM/DL (6.4-8.2)
== END ==
LOC: M SFHCPLAZ 12:56
PROVIDERS: ATTEND Internal Medicine Infectious Disease
DX: A31.9 Mycobacterial infection, unspecified (principal); J47.1 Bronchiectasis with (acute) exacerbation; R74.8 Abnormal levels of other serum enzymes; R73.9 Hyperglycemia, unspecified
CPT/HCPCS: 80053; 85025; 85652; 86140; 87116; 87206; G0463

== ENCOUNTER → 2020-10-01 | Outpatient (REF) | payer OTHER ==
[2020-10-01 11:49] LABS: BASO # 0.1 10^3/uL (0.0-0.2); BASO % 0.8 % (0.0-1.0); EOS # 0.2 10^3/uL (0.0-0.5); EOS % 2.8 % (0.0-3.0); HEMATOCRIT 44.7 % (42.0-52.0); HEMOGLOBIN 14.5 g/dl (13.5-17.5); LYMPH % 25.3 % (24.0-44.0); MEAN CORPUSCULAR HGB CONC 32.4 g/dl (32.0-36.5); MEAN CORPUSCULAR VOLUME 80.1 fl (80.0-96.0); MONO # 0.7 10^3/uL (0.0-0.8); MONO % 8.3 % (0.0-5.0); NEUTROPHILS % 62.4 % (36.0-66.0); PLATELET COUNT, AUTOMATED 207 10^3/uL (150-450); RED BLOOD COUNT 5.58 10^6/uL (4.30-6.10)
[2020-10-01 12:26] LABS: ERYTHROCYTE SEDIMENTATION RATE 8 mm/hr (0-15)
[2020-10-01 12:44] LABS: ALBUMIN 3.2 GM/DL (3.2-5.2); ALT/SGPT 39 U/L (12-78); BILIRUBIN,TOTAL 0.3 MG/DL (0.2-1.0); BLOOD UREA NITROGEN 13 MG/DL (7-18); C REACTIVE PROTEIN QUANTITATIV 1.47 MG/DL (0.00-0.30); CALCIUM LEVEL 8.1 MG/DL (8.5-10.1); CARBON DIOXIDE LEVEL 28 MEQ/L (21-32); CHLORIDE LEVEL 103 MEQ/L (98-107); CREATININE FOR GFR 0.89 MG/DL (0.70-1.30); GLOMERULAR FILTRATION RATE > 60.0 (>60); GLUCOSE, FASTING 227 MG/DL (70-100); POTASSIUM SERUM 3.3 MEQ/L (3.5-5.1); SODIUM LEVEL 136 MEQ/L (136-145); TOTAL PROTEIN 7.6 GM/DL (6.4-8.2)
== END ==
LOC: M LAB REF 11:10
PROVIDERS: ATTEND Internal Medicine Infectious Disease
DX: A31.0 Pulmonary mycobacterial infection (principal); J47.1 Bronchiectasis with (acute) exacerbation; R74.8 Abnormal levels of other serum enzymes; R73.9 Hyperglycemia, unspecified

== ENCOUNTER → 2020-10-15 | Outpatient (REF) | payer OTHER ==
[2020-10-15 12:25] LABS: BASO # 0.1 10^3/uL (0.0-0.2); BASO % 0.6 % (0.0-1.0); EOS # 0.3 10^3/uL (0.0-0.5); EOS % 3.8 % (0.0-3.0); HEMATOCRIT 46.4 % (42.0-52.0); HEMOGLOBIN 14.8 g/dl (13.5-17.5); LYMPH # 1.9 10^3/uL (1.5-5.0); LYMPH % 24.6 % (24.0-44.0); MEAN CORPUSCULAR HEMOGLOBIN 25.6 pg (27.0-33.0); MEAN CORPUSCULAR HGB CONC 31.9 g/dl (32.0-36.5); MEAN CORPUSCULAR VOLUME 80.3 fl (80.0-96.0); MONO # 0.6 10^3/uL (0.0-0.8); MONO % 8.1 % (0.0-5.0); NEUTROPHILS # 4.9 10^3/uL (1.5-8.5); NEUTROPHILS % 62.5 % (36.0-66.0); PLATELET COUNT, AUTOMATED 241 10^3/uL (150-450); RED BLOOD COUNT 5.78 10^6/uL (4.30-6.10); WHITE BLOOD COUNT 7.8 10^3/uL (4.0-10.0)
[2020-10-15 12:55] LABS: ALBUMIN 3.5 GM/DL (3.2-5.2); ALT/SGPT 149 U/L (12-78); BILIRUBIN,TOTAL 0.5 MG/DL (0.2-1.0); BLOOD UREA NITROGEN 9 MG/DL (7-18); C REACTIVE PROTEIN QUANTITATIV 0.79 MG/DL (0.00-0.30); CALCIUM LEVEL 8.4 MG/DL (8.5-10.1); CARBON DIOXIDE LEVEL 28 MEQ/L (21-32); CHLORIDE LEVEL 103 MEQ/L (98-107); CREATININE FOR GFR 0.88 MG/DL (0.70-1.30); GLOMERULAR FILTRATION RATE > 60.0 (>60); GLUCOSE, FASTING 218 MG/DL (70-100); POTASSIUM SERUM 3.5 MEQ/L (3.5-5.1); SODIUM LEVEL 139 MEQ/L (136-145); TOTAL PROTEIN 7.6 GM/DL (6.4-8.2)
[2020-10-15 12:56] LABS: ERYTHROCYTE SEDIMENTATION RATE 7 mm/hr (0-15)
== END ==
LOC: M LAB REF 11:44
PROVIDERS: ATTEND Internal Medicine Infectious Disease
DX: A31.0 Pulmonary mycobacterial infection (principal); J47.1 Bronchiectasis with (acute) exacerbation; R74.8 Abnormal levels of other serum enzymes; R73.9 Hyperglycemia, unspecified

== ENCOUNTER → 2020-10-30 | Outpatient (REF) | payer OTHER ==
[2020-10-30 13:21] LABS: HEMATOCRIT 50.5 % (42.0-52.0); HEMOGLOBIN 15.7 g/dl (13.5-17.5); MEAN CORPUSCULAR HEMOGLOBIN 24.7 pg (27.0-33.0); MEAN CORPUSCULAR HGB CONC 31.1 g/dl (32.0-36.5); MEAN CORPUSCULAR VOLUME 79.5 fl (80.0-96.0); PLATELET COUNT, AUTOMATED 306 10^3/uL (150-450); RED BLOOD COUNT 6.35 10^6/uL (4.30-6.10); WHITE BLOOD COUNT 12.9 10^3/uL (4.0-10.0)
[2020-10-30 13:53] LABS: ERYTHROCYTE SEDIMENTATION RATE 2 mm/hr (0-15)
[2020-10-30 13:54] LABS: ALBUMIN 4.2 GM/DL (3.2-5.2); ALT/SGPT 17 U/L (12-78); BILIRUBIN,TOTAL 0.4 MG/DL (0.2-1.0); BLOOD UREA NITROGEN 13 MG/DL (7-18); C REACTIVE PROTEIN QUANTITATIV 0.42 MG/DL (0.00-0.30); CALCIUM LEVEL 9.4 MG/DL (8.5-10.1); CARBON DIOXIDE LEVEL 27 MEQ/L (21-32); CHLORIDE LEVEL 104 MEQ/L (98-107); CREATININE FOR GFR 1.07 MG/DL (0.70-1.30); GLOMERULAR FILTRATION RATE > 60.0 (>60); GLUCOSE, FASTING 105 MG/DL (70-100); POTASSIUM SERUM 3.8 MEQ/L (3.5-5.1); SODIUM LEVEL 138 MEQ/L (136-145); TOTAL PROTEIN 8.7 GM/DL (6.4-8.2)
== END ==
LOC: M LAB REF 13:00
PROVIDERS: ATTEND Internal Medicine Infectious Disease
DX: R74.8 Abnormal levels of other serum enzymes (principal); R73.9 Hyperglycemia, unspecified; A31.0 Pulmonary mycobacterial infection; J47.1 Bronchiectasis with (acute) exacerbation

== ENCOUNTER → 2020-11-06 | Outpatient (REF) | payer OTHER | LOC: M SFHCPLAZ 09:59 | PROVIDERS: ATTEND Internal Medicine Infectious Disease | DX: A31.9 Mycobacterial infection, unspecified (principal) | CPT/HCPCS: 87116; 87206; G0463 ==

== ENCOUNTER → 2020-11-14 | Outpatient (REF) | payer OTHER ==
[2020-11-14 11:04] LABS: BASO # 0.1 10^3/uL (0.0-0.2); BASO % 0.6 % (0.0-1.0); EOS # 0.4 10^3/uL (0.0-0.5); EOS % 3.4 % (0.0-3.0); HEMATOCRIT 47.7 % (42.0-52.0); HEMOGLOBIN 15.6 g/dl (13.5-17.5); LYMPH # 2.7 10^3/uL (1.5-5.0); LYMPH % 24.2 % (24.0-44.0); MEAN CORPUSCULAR HEMOGLOBIN 25.9 pg (27.0-33.0); MEAN CORPUSCULAR HGB CONC 32.7 g/dl (32.0-36.5); MEAN CORPUSCULAR VOLUME 79.2 fl (80.0-96.0); MONO # 1.1 10^3/uL (0.0-0.8); MONO % 10.2 % (0.0-5.0); NEUTROPHILS # 6.8 10^3/uL (1.5-8.5); NEUTROPHILS % 61.2 % (36.0-66.0); PLATELET COUNT, AUTOMATED 292 10^3/uL (150-450); RED BLOOD COUNT 6.02 10^6/uL (4.30-6.10); WHITE BLOOD COUNT 11.1 10^3/uL (4.0-10.0)
[2020-11-14 11:49] LABS: ERYTHROCYTE SEDIMENTATION RATE 13 mm/hr (0-15)
[2020-11-14 12:10] LABS: ALT/SGPT 37 U/L (12-78); BILIRUBIN,TOTAL 0.4 MG/DL (0.2-1.0); BLOOD UREA NITROGEN 14 MG/DL (7-18); CALCIUM LEVEL 8.5 MG/DL (8.5-10.1); CARBON DIOXIDE LEVEL 28 MEQ/L (21-32); CHLORIDE LEVEL 104 MEQ/L (98-107); CREATININE FOR GFR 0.99 MG/DL (0.70-1.30); GLOMERULAR FILTRATION RATE > 60.0 (>60); GLUCOSE, FASTING 121 MG/DL (70-100); POTASSIUM SERUM 3.6 MEQ/L (3.5-5.1); SODIUM LEVEL 139 MEQ/L (136-145); TOTAL PROTEIN 8.3 GM/DL (6.4-8.2)
== END ==
LOC: M LAB REF 10:20
PROVIDERS: ATTEND Internal Medicine Infectious Disease
DX: Z31.0 Encounter for reversal of previous sterilization (principal); J47.1 Bronchiectasis with (acute) exacerbation; R74.8 Abnormal levels of other serum enzymes; R73.9 Hyperglycemia, unspecified

== ENCOUNTER → 2020-11-26 | Outpatient (REF) | payer OTHER ==
[2020-11-26 11:14] LABS: BASO % 0.4 % (0.0-1.0); EOS # 0.2 10^3/uL (0.0-0.5); EOS % 2.6 % (0.0-3.0); HEMATOCRIT 48.4 % (42.0-52.0); HEMOGLOBIN 15.2 g/dl (13.5-17.5); LYMPH # 2.1 10^3/uL (1.5-5.0); LYMPH % 23.1 % (24.0-44.0); MEAN CORPUSCULAR HEMOGLOBIN 24.9 pg (27.0-33.0); MEAN CORPUSCULAR HGB CONC 31.4 g/dl (32.0-36.5); MEAN CORPUSCULAR VOLUME 79.3 fl (80.0-96.0); MONO # 0.9 10^3/uL (0.0-0.8); MONO % 10.2 % (0.0-5.0); NEUTROPHILS # 5.6 10^3/uL (1.5-8.5); NEUTROPHILS % 63.3 % (36.0-66.0); PLATELET COUNT, AUTOMATED 248 10^3/uL (150-450); WHITE BLOOD COUNT 8.9 10^3/uL (4.0-10.0)
[2020-11-26 11:41] LABS: ERYTHROCYTE SEDIMENTATION RATE 9 mm/hr (0-15)
[2020-11-26 11:53] LABS: BLOOD UREA NITROGEN 17 MG/DL (7-18); CARBON DIOXIDE LEVEL 31 MEQ/L (21-32); CHLORIDE LEVEL 103 MEQ/L (98-107); CREATININE FOR GFR 0.86 MG/DL (0.70-1.30); GLOMERULAR FILTRATION RATE > 60.0 (>60); GLUCOSE, FASTING 103 MG/DL (70-100); POTASSIUM SERUM 3.7 MEQ/L (3.5-5.1); SODIUM LEVEL 139 MEQ/L (136-145)
[2020-11-26 11:54] LABS: ALBUMIN 3.9 GM/DL (3.2-5.2); ALT/SGPT 24 U/L (12-78); BILIRUBIN,TOTAL 0.9 MG/DL (0.2-1.0); C REACTIVE PROTEIN QUANTITATIV 0.73 MG/DL (0.00-0.30); CALCIUM LEVEL 9.2 MG/DL (8.5-10.1); TOTAL PROTEIN 8.2 GM/DL (6.4-8.2)
== END ==
LOC: M LAB REF 10:49
PROVIDERS: ATTEND Internal Medicine Infectious Disease
DX: R74.8 Abnormal levels of other serum enzymes (principal); R73.9 Hyperglycemia, unspecified

== ENCOUNTER → 2020-12-08 | Outpatient (REF) | payer OTHER ==
[2020-12-08 16:09] LABS: BASO # 0.1 10^3/uL (0.0-0.2); BASO % 0.9 % (0.0-1.0); EOS # 0.3 10^3/uL (0.0-0.5); EOS % 3.4 % (0.0-3.0); HEMATOCRIT 46.9 % (42.0-52.0); HEMOGLOBIN 14.8 g/dl (13.5-17.5); LYMPH % 25.5 % (24.0-44.0); MEAN CORPUSCULAR HEMOGLOBIN 25.1 pg (27.0-33.0); MEAN CORPUSCULAR HGB CONC 31.6 g/dl (32.0-36.5); MEAN CORPUSCULAR VOLUME 79.5 fl (80.0-96.0); MONO % 12.2 % (0.0-5.0); NEUTROPHILS # 4.5 10^3/uL (1.5-8.5); NEUTROPHILS % 57.6 % (36.0-66.0); PLATELET COUNT, AUTOMATED 261 10^3/uL (150-450)
[2020-12-08 16:11] LABS: WHITE BLOOD COUNT 7.9 10^3/uL (4.0-10.0)
[2020-12-08 16:38] LABS: ERYTHROCYTE SEDIMENTATION RATE 13 mm/hr (0-15)
[2020-12-08 16:50] LABS: ALT/SGPT 35 U/L (12-78); BILIRUBIN,TOTAL 0.2 MG/DL (0.2-1.0); BLOOD UREA NITROGEN 14 MG/DL (7-18); C REACTIVE PROTEIN QUANTITATIV 2.21 MG/DL (0.00-0.30); CALCIUM LEVEL 9.2 MG/DL (8.5-10.1); CARBON DIOXIDE LEVEL 29 MEQ/L (21-32); CHLORIDE LEVEL 104 MEQ/L (98-107); CREATININE FOR GFR 0.83 MG/DL (0.70-1.30); GLOMERULAR FILTRATION RATE > 60.0 (>60); GLUCOSE, FASTING 99 MG/DL (70-100); POTASSIUM SERUM 4.2 MEQ/L (3.5-5.1); SODIUM LEVEL 140 MEQ/L (136-145); TOTAL PROTEIN 8.4 GM/DL (6.4-8.2)
== END ==
LOC: M LAB REF 13:18
PROVIDERS: ATTEND Internal Medicine Infectious Disease
DX: A31.0 Pulmonary mycobacterial infection (principal); J47.1 Bronchiectasis with (acute) exacerbation; R74.8 Abnormal levels of other serum enzymes; R73.9 Hyperglycemia, unspecified

== ENCOUNTER → 2020-12-22 | Outpatient (REF) | payer OTHER ==
[2020-12-22 12:55] LABS: BASO # 0.1 10^3/uL (0.0-0.2); BASO % 0.9 % (0.0-1.0); EOS # 0.2 10^3/uL (0.0-0.5); EOS % 2.6 % (0.0-3.0); HEMATOCRIT 46.9 % (42.0-52.0); HEMOGLOBIN 14.9 g/dl (13.5-17.5); LYMPH # 2.5 10^3/uL (1.5-5.0); MEAN CORPUSCULAR HEMOGLOBIN 24.9 pg (27.0-33.0); MEAN CORPUSCULAR HGB CONC 31.8 g/dl (32.0-36.5); MEAN CORPUSCULAR VOLUME 78.4 fl (80.0-96.0); MONO # 0.9 10^3/uL (0.0-0.8); MONO % 9.1 % (2.0-8.0); NEUTROPHILS # 5.5 10^3/uL (1.5-8.5); NEUTROPHILS % 59.3 % (36.0-66.0); PLATELET COUNT, AUTOMATED 274 10^3/uL (150-450); RED BLOOD COUNT 5.98 10^6/uL (4.30-6.10); WHITE BLOOD COUNT 9.3 10^3/uL (4.0-10.0)
[2020-12-22 13:21] LABS: ERYTHROCYTE SEDIMENTATION RATE 26 mm/hr (0-15)
[2020-12-22 13:28] LABS: ALBUMIN 3.8 GM/DL (3.2-5.2); ALT/SGPT 22 U/L (12-78); BILIRUBIN,TOTAL 0.5 MG/DL (0.2-1.0); BLOOD UREA NITROGEN 14 MG/DL (7-18); CARBON DIOXIDE LEVEL 29 MEQ/L (21-32); CHLORIDE LEVEL 100 MEQ/L (98-107); CREATININE FOR GFR 0.98 MG/DL (0.70-1.30); GLOMERULAR FILTRATION RATE > 60.0 (>60); GLUCOSE, FASTING 171 MG/DL (70-100); POTASSIUM SERUM 3.5 MEQ/L (3.5-5.1); SODIUM LEVEL 137 MEQ/L (136-145); TOTAL PROTEIN 8.1 GM/DL (6.4-8.2)
== END ==
LOC: M LAB REF 12:19
PROVIDERS: ATTEND Internal Medicine Infectious Disease
DX: J47.1 Bronchiectasis with (acute) exacerbation (principal); A31.0 Pulmonary mycobacterial infection; R74.8 Abnormal levels of other serum enzymes; R73.9 Hyperglycemia, unspecified
CPT/HCPCS: 80053; 85025; 85652; 86140; 87116; 87186; 87206; G0463

== ENCOUNTER → 2021-01-06 | Outpatient (REF) | payer OTHER ==
[2021-01-06 13:31] LABS: BASO # 0.1 10^3/uL (0.0-0.2); EOS # 0.3 10^3/uL (0.0-0.5); EOS % 3.2 % (0.0-3.0); HEMATOCRIT 46.7 % (42.0-52.0); HEMOGLOBIN 14.6 g/dl (13.5-17.5); LYMPH # 1.9 10^3/uL (1.5-5.0); LYMPH % 23.6 % (24.0-44.0); MEAN CORPUSCULAR HGB CONC 31.3 g/dl (32.0-36.5); MONO # 0.7 10^3/uL (0.0-0.8); MONO % 9.1 % (2.0-8.0); NEUTROPHILS # 5.1 10^3/uL (1.5-8.5); NEUTROPHILS % 62.5 % (36.0-66.0); PLATELET COUNT, AUTOMATED 393 10^3/uL (150-450); RED BLOOD COUNT 5.84 10^6/uL (4.30-6.10); WHITE BLOOD COUNT 8.1 10^3/uL (4.0-10.0)
[2021-01-06 14:01] LABS: ALBUMIN 3.5 GM/DL (3.2-5.2); ALT/SGPT 23 U/L (12-78); BILIRUBIN,TOTAL 0.3 MG/DL (0.2-1.0); BLOOD UREA NITROGEN 10 MG/DL (7-18); C REACTIVE PROTEIN QUANTITATIV 0.86 MG/DL (0.00-0.30); CALCIUM LEVEL 8.7 MG/DL (8.5-10.1); CARBON DIOXIDE LEVEL 29 MEQ/L (21-32); CHLORIDE LEVEL 105 MEQ/L (98-107); CREATININE FOR GFR 1.08 MG/DL (0.70-1.30); GLOMERULAR FILTRATION RATE > 60.0 (>60); GLUCOSE, FASTING 85 MG/DL (70-100); POTASSIUM SERUM 4.4 MEQ/L (3.5-5.1); SODIUM LEVEL 139 MEQ/L (136-145); TOTAL PROTEIN 7.8 GM/DL (6.4-8.2)
[2021-01-06 14:51] LABS: ERYTHROCYTE SEDIMENTATION RATE 30 mm/hr (0-15)
== END ==
LOC: M LAB REF 12:44
PROVIDERS: ATTEND Internal Medicine Infectious Disease
DX: A31.0 Pulmonary mycobacterial infection (principal); J47.1 Bronchiectasis with (acute) exacerbation; R74.8 Abnormal levels of other serum enzymes; R73.9 Hyperglycemia, unspecified

== ENCOUNTER → 2021-01-20 | Outpatient (REF) | payer OTHER ==
[2021-01-20 12:49] LABS: BASO # 0.1 10^3/uL (0.0-0.2); BASO % 1.2 % (0.0-1.0); EOS # 0.3 10^3/uL (0.0-0.5); EOS % 4.5 % (0.0-3.0); HEMATOCRIT 48.8 % (42.0-52.0); HEMOGLOBIN 15.3 g/dl (13.5-17.5); LYMPH # 2.6 10^3/uL (1.5-5.0); LYMPH % 33.6 % (24.0-44.0); MEAN CORPUSCULAR HEMOGLOBIN 25.3 pg (27.0-33.0); MEAN CORPUSCULAR HGB CONC 31.4 g/dl (32.0-36.5); MEAN CORPUSCULAR VOLUME 80.7 fl (80.0-96.0); MONO # 0.5 10^3/uL (0.0-0.8); MONO % 7.1 % (2.0-8.0); NEUTROPHILS % 52.8 % (36.0-66.0); PLATELET COUNT, AUTOMATED 301 10^3/uL (150-450); RED BLOOD COUNT 6.05 10^6/uL (4.30-6.10); WHITE BLOOD COUNT 7.6 10^3/uL (4.0-10.0)
[2021-01-20 13:19] LABS: ALBUMIN 3.6 GM/DL (3.2-5.2); ALT/SGPT 42 U/L (12-78); BILIRUBIN,TOTAL 0.5 MG/DL (0.2-1.0); BLOOD UREA NITROGEN 11 MG/DL (7-18); C REACTIVE PROTEIN QUANTITATIV 0.99 MG/DL (0.00-0.30); CALCIUM LEVEL 8.8 MG/DL (8.5-10.1); CARBON DIOXIDE LEVEL 27 MEQ/L (21-32); CHLORIDE LEVEL 101 MEQ/L (98-107); CREATININE FOR GFR 0.86 MG/DL (0.70-1.30); GLOMERULAR FILTRATION RATE > 60.0 (>60); GLUCOSE, FASTING 124 MG/DL (70-100); POTASSIUM SERUM 3.9 MEQ/L (3.5-5.1); SODIUM LEVEL 136 MEQ/L (136-145)
[2021-01-20 13:22] LABS: ERYTHROCYTE SEDIMENTATION RATE 17 mm/hr (0-15)
== END ==
LOC: M LAB REF 12:08
PROVIDERS: ATTEND Internal Medicine Infectious Disease
DX: A31.0 Pulmonary mycobacterial infection (principal); J47.1 Bronchiectasis with (acute) exacerbation; R74.8 Abnormal levels of other serum enzymes; R73.9 Hyperglycemia, unspecified

== ENCOUNTER → 2021-02-03 | Outpatient (REF) | payer OTHER ==
[2021-02-03 17:35] LABS: BASO # 0.1 10^3/uL (0.0-0.2); BASO % 1.1 % (0.0-1.0); EOS # 0.3 10^3/uL (0.0-0.5); EOS % 5.1 % (0.0-3.0); HEMATOCRIT 45.1 % (42.0-52.0); HEMOGLOBIN 14.4 g/dl (13.5-17.5); LYMPH # 2.2 10^3/uL (1.5-5.0); LYMPH % 33.5 % (24.0-44.0); MEAN CORPUSCULAR HEMOGLOBIN 25.6 pg (27.0-33.0); MEAN CORPUSCULAR HGB CONC 31.9 g/dl (32.0-36.5); MEAN CORPUSCULAR VOLUME 80.2 fl (80.0-96.0); MONO # 0.5 10^3/uL (0.0-0.8); MONO % 8.1 % (2.0-8.0); NEUTROPHILS # 3.4 10^3/uL (1.5-8.5); NEUTROPHILS % 51.7 % (36.0-66.0); PLATELET COUNT, AUTOMATED 336 10^3/uL (150-450); RED BLOOD COUNT 5.62 10^6/uL (4.30-6.10); WHITE BLOOD COUNT 6.6 10^3/uL (4.0-10.0)
[2021-02-03 17:52] LABS: ALBUMIN 3.4 GM/DL (3.2-5.2); ALT/SGPT 22 U/L (12-78); BILIRUBIN,TOTAL 0.4 MG/DL (0.2-1.0); BLOOD UREA NITROGEN 10 MG/DL (7-18); C REACTIVE PROTEIN QUANTITATIV 1.75 MG/DL (0.00-0.30); CALCIUM LEVEL 8.8 MG/DL (8.5-10.1); CARBON DIOXIDE LEVEL 30 MEQ/L (21-32); CHLORIDE LEVEL 107 MEQ/L (98-107); CREATININE FOR GFR 0.82 MG/DL (0.70-1.30); GLOMERULAR FILTRATION RATE > 60.0 (>60); GLUCOSE, FASTING 118 MG/DL (70-100); POTASSIUM SERUM 4.1 MEQ/L (3.5-5.1); SODIUM LEVEL 140 MEQ/L (136-145); TOTAL PROTEIN 7.7 GM/DL (6.4-8.2)
[2021-02-03 18:10] LABS: ERYTHROCYTE SEDIMENTATION RATE 40 mm/hr (0-15)
== END ==
LOC: M LAB REF 16:14
PROVIDERS: ATTEND Internal Medicine Infectious Disease
DX: J47.1 Bronchiectasis with (acute) exacerbation (principal); A31.0 Pulmonary mycobacterial infection

== ENCOUNTER → 2021-02-17 | Outpatient (REF) | payer OTHER ==
[2021-02-17 12:59] LABS: BASO # 0.1 10^3/uL (0.0-0.2); BASO % 0.8 % (0.0-1.0); EOS # 0.4 10^3/uL (0.0-0.5); EOS % 4.2 % (0.0-3.0); HEMATOCRIT 44.5 % (42.0-52.0); HEMOGLOBIN 14.1 g/dl (13.5-17.5); LYMPH # 1.7 10^3/uL (1.5-5.0); LYMPH % 17.2 % (24.0-44.0); MEAN CORPUSCULAR HEMOGLOBIN 25.2 pg (27.0-33.0); MEAN CORPUSCULAR HGB CONC 31.7 g/dl (32.0-36.5); MEAN CORPUSCULAR VOLUME 79.6 fl (80.0-96.0); MONO # 0.9 10^3/uL (0.0-0.8); MONO % 9.2 % (2.0-8.0); NEUTROPHILS # 6.7 10^3/uL (1.5-8.5); NEUTROPHILS % 67.7 % (36.0-66.0); PLATELET COUNT, AUTOMATED 337 10^3/uL (150-450); RED BLOOD COUNT 5.59 10^6/uL (4.30-6.10); WHITE BLOOD COUNT 9.9 10^3/uL (4.0-10.0)
[2021-02-17 13:23] LABS: ERYTHROCYTE SEDIMENTATION RATE 43 mm/hr (0-15)
[2021-02-17 13:27] LABS: ALBUMIN 3.4 GM/DL (3.2-5.2); ALT/SGPT 16 U/L (12-78); BILIRUBIN,TOTAL 0.4 MG/DL (0.2-1.0); BLOOD UREA NITROGEN 8 MG/DL (7-18); C REACTIVE PROTEIN QUANTITATIV 8.28 MG/DL (0.00-0.30); CALCIUM LEVEL 8.6 MG/DL (8.5-10.1); CARBON DIOXIDE LEVEL 28 MEQ/L (21-32); CHLORIDE LEVEL 103 MEQ/L (98-107); CREATININE FOR GFR 0.78 MG/DL (0.70-1.30); GLOMERULAR FILTRATION RATE > 60.0 (>60); GLUCOSE, FASTING 115 MG/DL (70-100); POTASSIUM SERUM 3.7 MEQ/L (3.5-5.1); SODIUM LEVEL 138 MEQ/L (136-145)
== END ==
LOC: M LAB REF 11:39
PROVIDERS: ATTEND Internal Medicine Infectious Disease
DX: R74.8 Abnormal levels of other serum enzymes (principal); R73.9 Hyperglycemia, unspecified; J47.1 Bronchiectasis with (acute) exacerbation; A31.0 Pulmonary mycobacterial infection

== ENCOUNTER → 2021-02-23 | Outpatient (CLI) | payer OTHER ==
[~2021-02-23] MED LIST changes: +ISOVUE-370 76% 100ML VIAL As Ordered ONE
--- NOTE | 2021-02-23 13:56 | REP ---
INDICATION: MAC INFECTION. COMPARISON: Multiple the latest 06/26/2020 TECHNIQUE: Standard helical technique after the intravenous administration of 100 cc Isovue 370. FINDINGS: Anterior mediastinal soft tissue densities are again seen status quo. Prominent but nonenlarged hilar lymph nodes are again noted. There are no pleural or pericardial effusions. There is no change in the imaged upper abdomen or imaged osseous structures. Evaluation of the lung rogers shows scattered numerable asymmetric and nodular densities with basilar predominance and all of which appears essentially unchanged when the technical differences between all examinations are taken into consideration. Today's examination was obtained with less inspiratory volume when compared to the latest prior exam. This crowds the interstitium. There is evidence of bibasilar varicoid bronchiectasis. Early saccular bronchiectasis is also suspected. IMPRESSION: Chronic lung field changes and mediastinal changes, as described above, essentially unchanged <Electronically signed by Austin Butler > 02/23/21 [id number]
== END ==
LOC: M RAD 11:40
PROVIDERS: ATTEND Internal Medicine Infectious Disease
DX: A31.9 Mycobacterial infection, unspecified (principal)

== ENCOUNTER → 2021-03-03 | Outpatient (REF) | payer OTHER ==
[~2021-03-03] MED LIST changes: -ISOVUE-370 76% 100ML VIAL As Ordered ONE
[2021-03-03 12:17] LABS: BASO # 0.1 10^3/uL (0.0-0.2); BASO % 1.3 % (0.0-1.0); EOS # 0.5 10^3/uL (0.0-0.5); HEMATOCRIT 46.6 % (42.0-52.0); HEMOGLOBIN 14.3 g/dl (13.5-17.5); LYMPH # 2.2 10^3/uL (1.5-5.0); MEAN CORPUSCULAR HEMOGLOBIN 24.5 pg (27.0-33.0); MEAN CORPUSCULAR HGB CONC 30.7 g/dl (32.0-36.5); MEAN CORPUSCULAR VOLUME 79.9 fl (80.0-96.0); MONO # 0.7 10^3/uL (0.0-0.8); MONO % 9.1 % (2.0-8.0); NEUTROPHILS # 4.3 10^3/uL (1.5-8.5); NEUTROPHILS % 55.1 % (36.0-66.0); PLATELET COUNT, AUTOMATED 309 10^3/uL (150-450); RED BLOOD COUNT 5.83 10^6/uL (4.30-6.10); WHITE BLOOD COUNT 7.8 10^3/uL (4.0-10.0)
[2021-03-03 12:43] LABS: ERYTHROCYTE SEDIMENTATION RATE 10 mm/hr (0-15)
[2021-03-03 12:53] LABS: ALBUMIN 3.4 GM/DL (3.2-5.2); ALT/SGPT 23 U/L (12-78); BILIRUBIN,TOTAL 0.3 MG/DL (0.2-1.0); BLOOD UREA NITROGEN 12 MG/DL (7-18); CALCIUM LEVEL 8.9 MG/DL (8.5-10.1); CARBON DIOXIDE LEVEL 27 MEQ/L (21-32); CHLORIDE LEVEL 101 MEQ/L (98-107); CREATININE FOR GFR 0.92 MG/DL (0.70-1.30); GLOMERULAR FILTRATION RATE > 60.0 (>60); GLUCOSE, FASTING 119 MG/DL (70-100); POTASSIUM SERUM 3.7 MEQ/L (3.5-5.1); RHEUMATOID FACTOR QUANT < 10.0 IU/ML (<15.0); SODIUM LEVEL 137 MEQ/L (136-145)
[2021-03-04 20:08] LABS: ANA (HEP2) Negative (.)
== END ==
LOC: M LAB REF 11:41
PROVIDERS: ATTEND Internal Medicine Infectious Disease
DX: A31.0 Pulmonary mycobacterial infection (principal); J47.1 Bronchiectasis with (acute) exacerbation; R74.8 Abnormal levels of other serum enzymes; R73.9 Hyperglycemia, unspecified

== ENCOUNTER 2021-03-18 10:01 | Emergency (ER) | payer OTHER ==
[~2021-03-18] VITALS: Ht 177.8 cm; Wt 86.4 kg
[2021-03-18] MEDS ORDERED: METF-838 PO (10:09)
[2021-03-18] MEDS ORDERED: ADV500INH INH (10:09)
[2021-03-18 10:53] LABS: BASO % 0.3 % (0.0-1.0); EOS % 0.3 % (0.0-3.0); HEMATOCRIT 42.2 % (42.0-52.0); HEMOGLOBIN 13.4 g/dl (13.5-17.5); LYMPH # 0.8 10^3/uL (1.5-5.0); LYMPH % 5.6 % (24.0-44.0); MEAN CORPUSCULAR HEMOGLOBIN 24.7 pg (27.0-33.0); MEAN CORPUSCULAR HGB CONC 31.8 g/dl (32.0-36.5); MEAN CORPUSCULAR VOLUME 77.7 fl (80.0-96.0); MONO # 0.7 10^3/uL (0.0-0.8); NEUTROPHILS # 11.9 10^3/uL (1.5-8.5); NEUTROPHILS % 88.1 % (36.0-66.0); PLATELET COUNT, AUTOMATED 216 10^3/uL (150-450); RED BLOOD COUNT 5.43 10^6/uL (4.30-6.10); WHITE BLOOD COUNT 13.5 10^3/uL (4.0-10.0)
[2021-03-18] MEDS ORDERED: NS 1,000 ML IV ONE (11:05)
[2021-03-18] MEDS ORDERED: GI COCKTAIL 50ML BTL(HYOSCYAMINE/MAALOX/LIDOCAINE VISCOUS)(1:3:1) PO ONE (11:05)
[2021-03-18] MEDS ORDERED: ONDANSETRON 4MG/2ML VIAL IV ONE (11:05)
--- NOTE | 2021-03-18 11:05 | REP ---
INDICATION: CHEST PAIN COMPARISON: 11/26/2020 TECHNIQUE: Portable AP view of the chest FINDINGS: The mediastinum and cardiac silhouette are stable and [id number] is again identified with tip in the right atrium. The lung rogers demonstrate diffuse airspace disease which may represent acute on chronic changes and are similar to prior examination. No discrete focal consolidation, effusion, or pneumothorax. Skeletal structures are intact. IMPRESSION: Diffuse acute/chronic airspace disease similar to prior examination. Correlation is required. If necessary consider chest CT for further investigation. <Electronically signed by Alfredo Hernandez > 03/18/21 1104
[2021-03-18 11:22] LABS: ALBUMIN 3.6 GM/DL (3.2-5.2); ALT/SGPT 37 U/L (12-78); BILIRUBIN,DIRECT 0.2 MG/DL (0.0-0.2); BILIRUBIN,TOTAL 0.5 MG/DL (0.2-1.0); BLOOD UREA NITROGEN 11 MG/DL (7-18); CARBON DIOXIDE LEVEL 28 MEQ/L (21-32); CHLORIDE LEVEL 102 MEQ/L (98-107); CREATININE FOR GFR 0.74 MG/DL (0.70-1.30); GLOMERULAR FILTRATION RATE > 60.0 (>60); GLUCOSE, FASTING 135 MG/DL (70-100); LIPASE 72 U/L (73-393); POTASSIUM SERUM 3.6 MEQ/L (3.5-5.1); SODIUM LEVEL 135 MEQ/L (136-145)
[2021-03-18] MEDS ORDERED: ISOVUE-370 76% 100ML VIAL As Ordered ONE (12:43)
--- NOTE | 2021-03-18 13:29 | REP ---
INDICATION: infiltrate COMPARISON: Multiple the latest 02/23/2021 a standard contrast-enhanced chest CT TECHNIQUE: CT angiography chest after the intravenous administration of 100 cc Isovue 370. Attention pulmonary arteries. FINDINGS: There is less than optimal visualization/opacification of the pulmonary arterial vasculature. This is to such a degree that medium and small sized emboli can not be ruled out. There is no evidence of a filling defect in the main pulmonary artery, right, or left main pulmonary arteries. There is no evidence of a thoracic aortic abnormality. The imaged upper abdomen and imaged osseous structures are within normal limits. There is no change in appearance of the mediastinum or pulmonary orestes. Evaluation of the lung rogers shows scattered asymmetric parenchymal densities and again with bibasilar predominant seen with air bronchograms within varicoid bronchiectasis. Numerable pulmonary nodules are again identified In the right upper lobe there is a new 1.6 cm sized ground-glass density. IMPRESSION: 1. Limited evaluation of the pulmonary arterial vasculature as described above likely secondary to injection timing. Pulmonary emboli cannot be ruled out. 2. There are chronic lung field changes as described above. There is evidence of a new focal opacity in the right upper lobe which has developed in less than a month. The exact etiology uncertain. Inflammatory changes likely. 3. Other findings as described above. <Electronically signed by Austin Butler > 03/18/21 1334
--- NOTE | 2021-03-18 13:32 | REP ---
INDICATION: epigastric pain. COMPARISON: None TECHNIQUE: Standard helical technique after the intravenous administration of 100 cc Isovue 370. No oral bowel preparatory contrast was administered prior to the exam. FINDINGS: The liver, gallbladder, spleen, pancreas, adrenal glands, and kidneys are within normal limits. The abdominal aorta and para-regions are within normal limits. Limited evaluation of the bowel loops and the mesenteries show no gross abnormalities. The appendix is well visualized and is within normal limits. There is no free fluid or free air. There is no evidence of a mass or adenopathy. Bone window technique throughout the examination shows the osseous structures to be within normal limits. IMPRESSION: CT findings are within normal limits. <Electronically signed by Austin Butler > 03/18/21 [id number]
[2021-03-18] MEDS ORDERED: KETOROLAC 30 MG/ML 1ML VIAL IV ONE (13:55)
[2021-03-18] MEDS ORDERED: AZITHROMYCIN INJ 500 MG, VIAL MATE ADAPTER 1 EACH in NS 250 ML IV ONE (13:55)
[2021-03-18] MEDS ORDERED: cefTRIAXone SOD 2 GM in D5W MINI-BAG PLUS 50 ML IV ONE (13:55)
[2021-03-18] MEDS ORDERED: PERCOCET 5MG/325MG TAB PO ONE (15:40)
[2021-03-18] MEDS ORDERED: SUCR1TA PO (15:45)
[2021-03-18] MEDS ORDERED: OMEP40CA97 PO (15:45)
[2021-03-18] MEDS ORDERED: KETO10TAB PO (15:45)
[2021-03-18 16:15] VITALS: BP 153/101
--- NOTE | 2021-03-18 20:05 | ECGEPIP ---
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
--- NOTE | 2021-03-19 11:56 | ED PDOC ---
Post-Departure Follow-Up cxr and cta chest faxed to [facility]e [facility] for fu Ji Reece MD March 19, 2021 11:56
== END 2021-03-18 16:39 | disposition home or self-care (01) ==
LOC: M ED 10:01
DX: K21.9 Gastro-esophageal reflux disease without esophagitis (principal); Z79.84 Long term (current) use of oral hypoglycemic drugs; Z79.899 Other long term (current) drug therapy; Z86.19 Personal history of other infectious and parasitic diseases
CPT/HCPCS: 36415; 71045; 71275; 74177; 80048; 80076; 83690; 84484; 85025; 93005; 96361; 96374; 96375; 99285; J1885; J2405; Q9967

== ENCOUNTER 2021-03-20 09:57 | Inpatient (IN) | payer OTHER ==
[~2021-03-20] VITALS: Ht 177.8 cm; Wt 84.9 kg
[~2021-03-20 09:57] MED LIST changes: +ADV500INH INH; +KETO10TAB PO; +METF-838 PO; +OMEP40CA97 PO; +SUCR1TA PO
[2021-03-20] MEDS ORDERED: NS 1,000 ML IV ONE ×2 (10:25→12:20)
[2021-03-20] MEDS ORDERED: PANTOPRAZOLE 40MG VIAL (C9113 PER 1) IV ONE (10:25)
[2021-03-20] MEDS ORDERED: KETOROLAC 30 MG/ML 1ML VIAL IV ONE (10:25)
[2021-03-20] MEDS ORDERED: ONDANSETRON 4 MG TAB PO ONE (10:25)
[2021-03-20 11:04] LABS: BASO # 0.1 10^3/uL (0.0-0.2); BASO % 0.3 % (0.0-1.0); EOS # 0.1 10^3/uL (0.0-0.5); EOS % 0.5 % (0.0-3.0); HEMATOCRIT 44.2 % (42.0-52.0); LYMPH % 6.1 % (24.0-44.0); MEAN CORPUSCULAR HEMOGLOBIN 24.6 pg (27.0-33.0); MEAN CORPUSCULAR HGB CONC 31.7 g/dl (32.0-36.5); MEAN CORPUSCULAR VOLUME 77.7 fl (80.0-96.0); MONO # 2.8 10^3/uL (0.0-0.8); MONO % 16.3 % (2.0-8.0); NEUTROPHILS # 12.9 10^3/uL (1.5-8.5); PLATELET COUNT, AUTOMATED 214 10^3/uL (150-450); RED BLOOD COUNT 5.69 10^6/uL (4.30-6.10)
--- NOTE | 2021-03-20 11:26 | REP ---
INDICATION: RUQ abdominal pain. COMPARISON: CT 03/18/2021. TECHNIQUE: Real-time sonographic evaluation of right upper quadrant performed. FINDINGS: Multiple mobile gallstones are seen in the gallbladder without evidence of gallbladder wall thickening or pericholecystic fluid. Patient is tender at the site of the gallbladder. There is no intrahepatic or extrahepatic biliary dilatation, common bile duct measures 7 mm in maximum diameter. This is upper limits of normal. The liver demonstrates homogeneous echotexture with no gross mass. Pancreas is not seen due to overlying bowel gas. The right kidney demonstrates no hydronephrosis, with a normal size of 12.5 cm in length. No free fluid is seen. IMPRESSION: Multiple mobile gallstones in the gallbladder with no gallbladder wall thickening, pericholecystic fluid or significant biliary dilatation. Common bile duct upper limits of normal at 7 mm. Patient is tender at the site of the gallbladder. <Electronically signed by Ritesh Blanca > 03/20/21 1122
[2021-03-20] MEDS ORDERED: cefTRIAXone SOD 1 GM in D5W MINI-BAG PLUS 50 ML IV ONE (11:35)
[2021-03-20] MEDS ORDERED: MORPHINE 4 MG/ML 1ML VIAL/SYRINGE (J2270) IV ONE (11:40)
[2021-03-20 11:59] LABS: ALBUMIN 3.1 GM/DL (3.2-5.2); ALT/SGPT 40 U/L (12-78); BILIRUBIN,DIRECT 0.3 MG/DL (0.0-0.2); BILIRUBIN,TOTAL 1.1 MG/DL (0.2-1.0); CK-MB VALUE MASS < 1.0 NG/ML (<3.6); CPK CREATINE PHOSPHOKINASE 69 U/L (39-308); LIPASE 66 U/L (73-393); MB/CK RELATIVE INDEX 1.45 (< OR =4); TOTAL PROTEIN 8.4 GM/DL (6.4-8.2); TROPONIN I < 0.02 NG/ML (< 0.10)
[2021-03-20] MEDS ORDERED: ONDANSETRON 4MG/2ML VIAL IV PRN (14:35)
[2021-03-20] MEDS ORDERED: PERCOCET 5MG/325MG TAB PO PRN (14:35)
[2021-03-20] MEDS ORDERED: KETOROLAC 30 MG/ML 1ML VIAL IV PRN (14:35)
[2021-03-20] MEDS ORDERED: ACETAMINOPHEN TAB 650MG DOSE (2X325MG) PO PRN (14:35)
[2021-03-20] MEDS ORDERED: AMPICILLIN SOD/SULBACTAM SOD 3 GM in D5W MINI-BAG PLUS 100 ML IV SCH (15:00)
[2021-03-20] MEDS ORDERED: CETI-14 PO (15:18)
[2021-03-20] MEDS ORDERED: OMEP1CAP73 PO (15:18)
[2021-03-20] MEDS ORDERED: SUCR1TAB56 PO (15:18)
[2021-03-20] MEDS ORDERED: KETO10TAB PO (15:18)
[2021-03-20] MEDS: MORPHINE 2 MG/ML 1ML VIAL (J2270) IV PRN (17:56)
[2021-03-20] MEDS: LR 1,000 ML IV SCH ×2 (17:56→22:35)
--- NOTE | 2021-03-20 20:34 | ECGEPIP ---
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
[2021-03-20 22:00] VITALS: BP 140/83
[2021-03-20 22:15] VITALS: BP 141/81
[2021-03-21] VITALS (8 sets, daily range): BP systolic 139–154; BP diastolic 92–98
[2021-03-21] MEDS: AMPICILLIN SOD/SULBACTAM SOD 3 GM in D5W MINI-BAG PLUS 100 ML IV SCH ×4 (00:16→18:33)
[2021-03-21] MEDS: PERCOCET 5MG/325MG TAB PO PRN ×3 (01:06→21:08)
[2021-03-21] MEDS: LR 1,000 ML IV SCH ×3 (03:55→18:34)
--- NOTE | 2021-03-21 07:01 | HPEPDOC ---
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 He was previously seen in the ER on the with epigastric/midsternal chest pain with a negative workup including cardiac workup. He also had a CT abdomen and pelvis done at that time. He had a mildly elevated leukocytosis at 13.5, normal LFTs. This is presumed to be from heartburn and he was discharged home. Patient reports when he got home that the pain persisted and the following evening, on the this shifted to the right upper quadrant area. He was not able to tolerate much oral intake save for crackers and water. He denies any fevers or chills. He denies any prior episodes of similar symptoms. He has prominent nausea. On presentation here he was described by the emergency room provider is having severe right upper quadrant discomfort and was very uncomfortable with clinically positive Kurtz sign. He received a dose of morphine as well as Zofran with some relief of his nausea and improvement though not resolution of his abdominal pain. When I first saw him he reports pain mainly centered the right subcostal area. His leukocytosis worsened to 17. and also had some mild elevation of his LFTs. An ultrasound was done revealing mobile gallstones, no apparent pericholecystic fluid and gallbladder wall thickening and mildly dilated common bile duct with no extrahepatic associated biliary dilatation. ALLERGIES: Please see below. HOME MEDICATIONS: Please see below. PAST MEDICAL HISTORY: 1. asthma. 2. history of pulmonary mycobaterial infection. 3. brpnchiectasis 4. obstructive sleep apnea 5. diabetes 6. depression 7. anxiety PAST SURGICAL HISTORY: 1. infusaport placement. 2. no abdominal surgeries. PERSONAL/SOCIAL HISTORY: reports smoking. REVIEW OF SYSTEMS: GENERAL: symptoms acute in nature, otherwise baseline healthy. HEENT: denies problems with visions or hearing. NECK: Denies any neck pain. CARDIOVASCULAR: was seen two days ago for midsternal chest pain, negative cardiac, pulmonary workup. MUSCULOSKELETAL: Denies arthralgias, back pain and thrombophlebitis. SKIN: Denies rash, jaundice NEUROLOGIC: Denies headache, stroke and transient ischemic attack. PSYCHIATRIC: reports depression and anxiety. ENDOCRINE: Denies thyroid disease. HEMATOLOGY/ONCOLOGY: Denies any bleeding or clotting disorder. PULMONARY: as above in pmh, denies shortness of breath on effort. GASTROINTESTINAL: see hpi. GENITOURINARY: Denies dysuria, frequency, hematuria and nocturia. ENDOCRINE: Denies polydipsia, polyphagia, polyuria, heat or cold intolerance. INFECTIOUS: has history of mycobacterial infection, bronchiectasis, finished alf antibiotics. NUTRITION: poor appetite x 2 days. PHYSICAL EXAMINATION: VITAL SIGNS: Please see below. GENERAL APPEARANCE: Patient just got morphine, was sleeping easy to wake up. mildly uncomfortable in appearance with movement. HEENT: Normocephalic, atraumatic. [place] palpebral conjunctivae. Anicteric sclerae. Lips mildly dry CHEST: No chest wall abnormalities. Normal respiratory motion/effort. NECK: Supple. No thyromegaly. No lymphadenopathies. LUNGS: Lung sounds are clear to auscultation bilaterally. No wheezing appreciated. HEART: No chest wall abnormalities. Heart rate and rhythm are regular with no murmurs. ABDOMEN: Abdomen is obese, soft, nondistended. Tender to palpation over right upper quadrant area, mild guarding, (+) Kurtz's sign less tender at the upper midline SKIN: warm, dry, no jaundice. EXTREMITIES: Extremities have no deformities. No edema identified. NEUROLOGICAL: awake, alert, oriented. ANCILLARIES: . LABORATORY DATA: Please see below. MICROBIOLOGY: Please see below. IMAGING: CT abdomen and pelvis on 03/18 RUQ US on 03/20. IMPRESSION AND PLAN: Acute Cholecystitis Clinically he looks to be having a gallbladder attack or acute cholecystitis which probably has started on the initial presentation on 519. Imaging does not show any severe inflammation on the gallbladder. He does have worsening leukocytosis. There is some mild elevation of his LFTs which includes to AST and ALT also of the total bilirubin but the direct fraction is only 0.3. The main differential will be choledocholithiasis. On imaging his common bile duct is mildly dilated at 7 mm but no associated extrahepatic or intrahepatic biliary dilatation was noted. He does have mobile gallstones and gallbladder. His tenderness is mostly at the right upper quadrant and less so at the midline. I will admit him started IV antibiotics. I'll repeat the LFTs in the morning and if this is stable, we'll proceed with cholecystectomy. If there is a little considerable bump especially of the total and direct bilirubin, we'll consider MRCP to rule out choledocholithiasis. I did discuss with them that we do not have any gastroenterology coverage for ERCP over the weekend and be may either need to transfer him out or wait until Tuesday when there is GI coverage if he ever needs ERCP. He understands this and has agreed with our plan for therapy.. Vital Signs Vital Signs Date Time Temp Pulse Resp B/P (MAP) Pulse Ox O2 Delivery O2 Flow Rate FiO2 03/21/21 01:06 18 03/20/21 22:25 3.0 03/20/21 22:00 102.3 137 140/83 (102) 89 Room Air I&Os I&O- Last 24 Hours up to 6 AM 03/21/21 06:00 Intake Total 2050 ml Output Total 0 ml Balance 2050 ml Laboratory Data Labs 24H Laboratory Tests 2 03/20/21 10:30: Immature Granulocyte % (Auto) 0.8, Neutrophils (%) (Auto) 76.0H, Lymphocytes (%) (Auto) 6.1L, Monocytes (%) (Auto) 16.3H, Eosinophils (%) (Auto) 0.5, Basophils (%) (Auto) 0.3, Neutrophils # (Auto) 12.9H, Lymphocytes # (Auto) 1.0L, Monocytes # (Auto) 2.8H, Eosinophils # (Auto) 0.1, Basophils # (Auto) 0.1, Nucleated Red Blood Cells % (auto) 0.0, Lactic Acid Level 1.4, Total Bilirubin 1.1#H, Direct Bilirubin 0.3H, Aspartate Amino Transf (AST/SGOT) 59H, Alanine Aminotransferase (ALT/SGPT) 40, Alkaline Phosphatase 74, Total Creatine Kinase 69, Creatine Kinase MB < 1.0, Creatine Kinase MB Relative Index 1.45, Troponin I < 0.02, Total Protein 8.4H, Albumin 3.1L, Albumin/Globulin Ratio 0.6, Lipase 66L 03/20/21 10:49: POC Glucose (Misc Panel) 132H, POC Sodium (Misc Panel) 133L, POC Potassium (Misc Panel) 4.1, POC Chloride (Misc Panel) 95L, POC Total CO2 (Misc Panel) 32.0H, POC Blood Urea Nitrogen (Misc Panel 6L, POC Ionized Calcium (Misc Panel) 4.0L, POC Creatinine (Misc Panel) 0.9, POC Hematocrit (Misc Panel) 44.0 03/20/21 16:13: Coronavirus (COVID-19)(PCR) NEGATIVE CBC/BMP Laboratory Tests 03/20/21 10:30 Microbiology Microbiology 03/20/21 Blood Culture, Received Pending 03/20/21 Blood Culture, Received Pending Home Medications Scheduled Cetirizine HCl (Cetirizine HCl) 10 Mg Tablet, 10 MG PO DAILY, (Reported) Metformin HCl (Metformin HCl ER) 500 Mg Tab.er.24h, 500 MG PO BID, (Reported) Omeprazole (Omeprazole) 20 Mg Capsule.dr, 20 MG PO DAILY, (Reported) Salmeterol/Fluticasone (Advair 500-50 Diskus) 1 Each Blst.w.dev, 1 PUFF INH BID, (Reported) Sucralfate (Sucralfate) 1 Gm Tablet, 1 GM PO ACHS, (Reported) Scheduled PRN Albuterol Sulf (Albuterol Sulfate) 2.5 Mg/3 Ml Vial.neb, 1 NEB INH QID PRN for SHORTNESS OF BREATH, (Reported) Albuterol Sulfate (Proair Hfa) 8.5 Gm Hfa.aer.ad, 2 PUFFS INH Q6H PRN for SHORTNESS OF BREATH, (Reported) Budesonide (Pulmicort) 0.5 Mg/2 Ml Ampul.neb, 1 NEB INH BID PRN for SHORTNESS OF BREATH, (Reported) Ketorolac Tromethamine (Ketorolac Tromethamine) 10 Mg Tablet, 10 MG PO Q6H PRN for PAIN, (Reported) Allergies Coded Allergies: No Known Allergies (Unverified , 11/14/19) A-FIB/CHADSVASC A-FIB History Current/History of A-Fib/PAF?: No Current PO Anticoag Therapy: No CANDI GUARDADO MD March 21, 2021 06:16
[2021-03-21] MEDS ORDERED: BUPIVACAINE HCL 0.25% 30ML VIAL As Ordered ONE (08:02)
[2021-03-21] MEDS ORDERED: LIDOCAINE 1% SDV 30ML VIAL As Ordered ONE (08:02)
--- NOTE | 2021-03-21 08:41 | IPNPDOC ---
Text Note Date of Service The patient was seen on 03/21/21. NOTE Patient seen in the preop holding area. Reports pain just about same still at the RUQ area, nausea better VS afebrile Exam: anicteric sclerae slight wheezing, good resp effort, improved with nebulization abdomen, soft, nondistended, mildly tender over RUQ area Impression Acute Cholecystitis Unfortunately lab was not able to draw blood from him, so we do not have any repeat LFTs. Exam still more likely that this is acute cholecystitis rather than choledocholithiasis. Will proceed with cholecystectomy. Details, risks and benefits discussed with the patient, consent obtained. VS,Fishbone, I+O VS, Fishbone, I+O Laboratory Tests 03/20/21 10:30 Vital Signs Date Time Temp Pulse Resp B/P (MAP) Pulse Ox O2 Delivery O2 Flow Rate FiO2 03/21/21 05:43 99.1 115 18 154/98 (116) 93 Room Air 03/20/21 22:35 3.0 I&O- Last 24 Hours up to 6 AM 03/21/21 06:00 Intake Total 2050 ml Output Total 0 ml Balance 2050 ml CANDI GUARDADO MD March 21, 2021 08:41
[2021-03-21] MEDS ORDERED: ONDANSETRON 4MG/2ML VIAL As Ordered ONE (08:55)
[2021-03-21] MEDS ORDERED: dexameTHASONE 4 MG/ML 1ML VIAL (J1100 PER 1MG) As Ordered ONE (08:55)
[2021-03-21] MEDS ORDERED: ROCURONIUM BROMIDE 50 MG/5 ML VIAL As Ordered ONE ×2 (08:55→09:40)
[2021-03-21] MEDS ORDERED: MIDAZOLAM INJ 2MG/2ML VIAL (J2250 PER 1MG) As Ordered ONE (08:55)
[2021-03-21] MEDS ORDERED: fentaNYL 100 MCG/2 ML INJECTION (J3010) As Ordered ONE (08:55)
[2021-03-21] MEDS ORDERED: LIDOCAINE 2% 100MG/5ML SDV (FOR ANES.) As Ordered ONE (08:55)
[2021-03-21] MEDS ORDERED: propofoL 200 MG/20 ML VIAL As Ordered ONE (08:55)
[2021-03-21] MEDS ORDERED: ACETAMINOPHEN 1000MG 100ML IV BTL (OFIRMEV) (J0131 PER 10MG) As Ordered ONE (08:55)
[2021-03-21] MEDS ORDERED: HYDROmorphone HCL 2 MG/ML 1ML VIAL (J1170) As Ordered ONE (09:02)
[2021-03-21] MEDS ORDERED: SUGAMMADEX SODIUM 500 MG/5 ML VIAL (BRIDION) As Ordered ONE (09:13)
[2021-03-21] MEDS ORDERED: LABETALOL 100MG/20ML VIAL As Ordered ONE (09:13)
[2021-03-21] MEDS ORDERED: ALBUTEROL SULFATE 2.5 MG/0.5 ML INH NEB SOLN INH ONE (09:20)
[2021-03-21] MEDS ORDERED: KETOROLAC 60MG 2ML VIAL As Ordered ONE (10:43)
[2021-03-21] MEDS ORDERED: ALBUTEROL SULFATE 2.5 MG/0.5 ML INH NEB SOLN INH PRN (11:25)
[2021-03-21] MEDS ORDERED: ALBUTEROL 90 MCG/ACT 8GM HFA INHALER INH PRN (11:25)
[2021-03-21] MEDS ORDERED: METOCLOPRAMIDE INJ 10MG/2ML VIAL (J2765 PER 1) IV PRN (11:50)
[2021-03-21] MEDS ORDERED: HYDROMORPHONE HCL 0.5 MG/ 0.5 ML SYRINGE (J1170 PER 1) IV PRN ×2 (11:50)
[2021-03-21] MEDS ORDERED: ONDANSETRON 4MG/2ML VIAL IV PRN (11:50)
[2021-03-21] MEDS ORDERED: fentaNYL 100 MCG/2 ML INJECTION (J3010) IV PRN (11:50)
[2021-03-21] MEDS ORDERED: oxyCODONE 5MG TAB PO PRN (11:50)
[2021-03-21] MEDS ORDERED: LR 1,000 ML IV SCH (11:50)
[2021-03-21 12:01] LABS: BASO % 0.2 % (0.0-1.0); EOS % 0.2 % (0.0-3.0); HEMOGLOBIN 12.7 g/dl (13.5-17.5); LYMPH # 0.3 10^3/uL (1.5-5.0); LYMPH % 2.2 % (24.0-44.0); MEAN CORPUSCULAR HEMOGLOBIN 24.5 pg (27.0-33.0); MEAN CORPUSCULAR VOLUME 79.2 fl (80.0-96.0); MONO # 1.1 10^3/uL (0.0-0.8); MONO % 6.9 % (2.0-8.0); NEUTROPHILS # 13.5 10^3/uL (1.5-8.5); PLATELET COUNT, AUTOMATED 218 10^3/uL (150-450); RED BLOOD COUNT 5.18 10^6/uL (4.30-6.10); WHITE BLOOD COUNT 15.2 10^3/uL (4.0-10.0)
[2021-03-21 12:31] LABS: ALBUMIN 2.8 GM/DL (3.2-5.2); ALT/SGPT 244 U/L (12-78); AMYLASE 51 U/L (25-115); BILIRUBIN,DIRECT 4.7 MG/DL (0.0-0.2); BILIRUBIN,TOTAL 5.4 MG/DL (0.2-1.0); BLOOD UREA NITROGEN 6 MG/DL (7-18); CARBON DIOXIDE LEVEL 23 MEQ/L (21-32); CHLORIDE LEVEL 102 MEQ/L (98-107); GLOMERULAR FILTRATION RATE > 60.0 (>60); GLUCOSE, FASTING 126 MG/DL (70-100); POTASSIUM SERUM 3.9 MEQ/L (3.5-5.1); SODIUM LEVEL 138 MEQ/L (136-145)
[2021-03-21] MEDS: CETIRIZINE (ZyrTEC) 10 MG TAB PO SCH (13:07)
[2021-03-21] MEDS: PANTOPRAZOLE 40MG VIAL (C9113 PER 1) IV SCH (13:07)
[2021-03-21] MEDS: ENOXAPARIN 40MG/0.4ML SYRINGE (J1650 PER 10MG) SC SCH (13:07)
[2021-03-21] MEDS: MORPHINE 2 MG/ML 1ML VIAL (J2270) IV PRN (18:41)
[2021-03-21] MEDS: ADVAIR HFA 230/21MCG INHALER INH SCH (20:44)
[2021-03-21] MEDS: BUDESONIDE 0.5 MG/2 ML INHALATION SUSPENSION INH SCH (20:44)
[2021-03-22] MEDS: AMPICILLIN SOD/SULBACTAM SOD 3 GM in D5W MINI-BAG PLUS 100 ML IV SCH ×4 (00:36→17:59)
[2021-03-22 01:40] VITALS: BP 143/92
[2021-03-22] MEDS: LR 1,000 ML IV SCH ×2 (01:40→07:37)
[2021-03-22] MEDS: PERCOCET 5MG/325MG TAB PO PRN ×3 (04:01→22:13)
--- NOTE | 2021-03-22 05:13 | ROOPDOC ---
[facility] Report Of Operation Report of Operation DATE OF PROCEDURE: 03/21/21 PREPROCEDURE DIAGNOSES: Acute Cholecystitis. POSTPROCEDURE DIAGNOSES: Severe, Gangrenous Acute Cholecystitis. PROCEDURE: Robotic Assisted Laparoscopic Cholecystectomy with ICG/Firefly for biliary tract identification SURGEON: Ambrose Pino MD SAMPLE DRILLER: ANESTHESIA: General Endotracheal Anesthesia. ESTIMATED BLOOD LOSS: Approximately 50 mL. COMPLICATIONS: none. REMARKS: 35 M with severe right upper quadrant pain, twice presented to the emergency room, clinically with acute cholecystitis, elevated wbcs, mildly eleva luis daniel lfts. PROCEDURE NOTE: severely thickened gallbladder, hemorrhagic wall, exudates around the gallbladder, no perforation. GB does not light up on firefly. DESCRIPTION OF PROCEDURE: Patient has been receiving Unasyn 3 g IV every 6hrs for acute cholecystitis since admission last evening; 2.5 mg of ICG was given IV in the preop area. He was brought to the operating room, laid supine on the table, compression boots placed for DVT prophylaxis. General endotracheal anesthesia started. His abdomen then prepped and draped in usual sterile fashion. Surgical timeout was performed prior to confirm right procedure, right patient identification and other necessary information prior to starting surgery. Entry into the abdomen done through an incision over at the LUQ subcostal area. A veress needle was used for entry. Proper placement confirmed with saline drop technique. Abdominal insufflation and started to pressure of 15 mmHg. Once fully insufflated an 8 mm robotic trocar was placed just to the right of the u mbilicus under direct vision of the laparoscope. Insertion site was inspected for injury and none was found. Likewise the Veress needle insertion site was inspected and no injury apparent. He was placed on a 15 reverse Trendelenburg position tilted towards the left side. I then placed 3 other robotic trochars along the same line as my optical port, one over the right anterior axillary line 2 ports over the left side 12 cm apart from the umbilicus. A transversus abdominis plane block was then performed bilaterally using the lidocaine/marcaine mixture under laparoscopic guidance. 20 mLs of the mixture placed on each side. The gallbladder was not visible. The liver appears smooth, mildly enlarged. There was some exudate as well as evidence for edema involving the nearby omentum encasing the gallbladder consistent with the severity of the acute cholecystitis. There is a small amount of serous fluid at the area but there is no gross bilious material that I could see. The da Charleen robot tower was then maneuvered in place and the trochars docked to the robot. After positioning the instruments inside of the abdomen, and scrubbed in to control of the camera and robotic instruments at the surgeon's console while my data assistant remains on the field. The surrounding omentum was bluntly dissected to reveal the gallbladder. This is thick-walled, hyperemic and tensely distended. On firefly, the liver lights up well, the gallbladder was pitched dark black with no absorption of the ICG and all. The course of the colon bile duct and common hepatic duct is not visible with firefly. He does have a Rouviere sulcus on the right side of the liver which I used as my marker for the level of the common bile duct. The gallbladder was aspirated and cyst this was difficult to manipulate at this state. The omentum was packed away with cottonoids. GB bile was almost brownish in color. This was sent for gram stain and cultures. There is still is minimal difficulty elevating the gallbladder to visualize neck of the gallbladder the sa me mostly perform this with a fundus down approach. The peritoneum at the posterior side of the gallbladder was opened up. With traction of the gallbladder inferiorly and liver edge superiorly I then started creating a plane at the posterior wall of the gallbladder which is slow and tedious due to the amount of oozing that was able to hug the wall of the gallbladder to avoid injury to the liver bed. I then proceeded going posteriorly laterally and medially up to the midportion of the gallbladder. Once the gallbladder was freed up enough I was able to elevate the fundus of the gallbladder and I started working at the neck of the gallbladder. The peritoneal attachments were opened up both medially and laterally. I connected this inferior dissection to my super ior dissection. Even with this the course of the cystic duct would not let up. There are some stones which are fairly small that are palpable. I decided to just continue my posterior dissection as I was making more progress this way. The continued to stay close to the gallbladder wall to a point that I entered the posterior wall of the gallbladder at about the lower body there was some mucous type fluid that got release as well as small irregular shaped stones. The opening was controlled and the bile that came out was suctioned off as well as the stones. I proceeded dissecting around the lower portion gallbladder almost an open book fashion now and have a good plane between the posterior wall of the gallbladder and the liver bed. Once I'm able to help better control of the lower body of the gallbladder was able to circumferentially come around the lower edge and neck of the gallbladder. At this point I was able to tent up the gallbladder that I could see a faint suggestion of course of the colon bile duct with firefly. I made sure I am dissecting above Rouviere sulcus to avoid injury. He has thick fat pad within the hepatocystic triangle and I slowly came around first the gallbladder neck and then following this to the course of the cystic duct. I was able to locate the cystic artery which looked fibrous. I circumferentially dissected this. I visually confirmed that this was pulsating and this was going through to the in neck of the gallbladder and nowhere else. I felt this was safe to take thus I clipped this with medium large Hem-o-adela clips and divided this. This allowed me to further gain control of the cystic duct as it comes out of the gallbladder neck and I proceeded dissecting this distally to get a good purchase around the gallbladder neck. I massaged the cystic duct to make sure there are no stones left on it. This feels moderately enlarged as well as fibrous. I chose a large clip for the cystic duct. Prior to clipping and cutting the duct I surveyed the area to make sure there are no aberrant structures that are going into the gallbladder. At this point the gallbladder has been fully taken out off the liver bed only connected to bite the cystic duct. I used a large Hem-o-adela clip. 2 clips were placed on the cystic duct side and one in the gallbladder side and this was divided. I thoroughly irrigated the liver bed and surgical site to look for any loose stones as well as signs of bleeding or bile leakage. Once satisfied I placed the gallbladder in an Endo Catch bag. The robotic instrument was removed, the robotic arms undocked and the top were removed from the field. I scrubbed back in. I used the umbilical port to extract the gallbladder which at large to accommodate the size of the gallbladder. I then placed a 19 Dayne drain into the gallbladder bed coming out off the right anterior axillary port site. The umbilical port site was closed using a Rd Vaughn device with 0 Vicryl suture in a mattress fashion. 2 sutures were placed. Rest of the ports were removed and closed with 4-0 Monocryl subcuticular fashion. A 19 Dayne drain was sutured to skin with 2-0 silk. Dermabond was used to cover the incision sites. There was serous sanguinous drainage mainly our irrigation coming out off the drain. Patient tolerated the procedure well. He was promptly awakened, extubated and brought to recovery room in stable condition. AMBROSE PINO MD March 22, 2021 05:13
[2021-03-22 06:28] VITALS: BP 136/85
[2021-03-22 07:00] LABS: BASO % 0.1 % (0.0-1.0); HEMATOCRIT 36.3 % (42.0-52.0); HEMOGLOBIN 11.5 g/dl (13.5-17.5); LYMPH # 0.9 10^3/uL (1.5-5.0); LYMPH % 6.3 % (24.0-44.0); MEAN CORPUSCULAR HEMOGLOBIN 24.7 pg (27.0-33.0); MEAN CORPUSCULAR HGB CONC 31.7 g/dl (32.0-36.5); MEAN CORPUSCULAR VOLUME 78.1 fl (80.0-96.0); MONO # 2.2 10^3/uL (0.0-0.8); MONO % 15.1 % (2.0-8.0); NEUTROPHILS # 11.1 10^3/uL (1.5-8.5); NEUTROPHILS % 77.5 % (36.0-66.0); PLATELET COUNT, AUTOMATED 229 10^3/uL (150-450); RED BLOOD COUNT 4.65 10^6/uL (4.30-6.10)
[2021-03-22 07:24] LABS: ALBUMIN 2.4 GM/DL (3.2-5.2); ALT/SGPT 155 U/L (12-78); BILIRUBIN,TOTAL 1.3 MG/DL (0.2-1.0); BLOOD UREA NITROGEN 4 MG/DL (7-18); CARBON DIOXIDE LEVEL 29 MEQ/L (21-32); CHLORIDE LEVEL 104 MEQ/L (98-107); CREATININE FOR GFR 0.69 MG/DL (0.70-1.30); GLOMERULAR FILTRATION RATE > 60.0 (>60); GLUCOSE, FASTING 137 MG/DL (70-100); POTASSIUM SERUM 3.5 MEQ/L (3.5-5.1); SODIUM LEVEL 138 MEQ/L (136-145); TOTAL PROTEIN 7.4 GM/DL (6.4-8.2)
[2021-03-22 07:32] LABS: WHITE BLOOD COUNT 14.4 10^3/uL (4.0-10.0)
[2021-03-22 08:00] VITALS: BP 159/105
[2021-03-22] MEDS: ENOXAPARIN 40MG/0.4ML SYRINGE (J1650 PER 10MG) SC SCH (09:00)
[2021-03-22] MEDS: metFORMIN XR 500MG TAB *GLUCOPHAGE XR PO SCH ×2 (09:00→20:39)
[2021-03-22] MEDS: CETIRIZINE (ZyrTEC) 10 MG TAB PO SCH (09:39)
[2021-03-22] MEDS: PANTOPRAZOLE 40MG VIAL (C9113 PER 1) IV SCH (09:39)
--- NOTE | 2021-03-22 09:46 | REP ---
INDICATION: elevated lfts, eval cbd stone. COMPARISON: Comparison CT study March 18, 2021. Comparison sonography March 20, 2021.. TECHNIQUE: T2 weighted axial and coronal images are acquired. An MRCP at sequences acquired and maximum intensity projection images are generated. FINDINGS: There is some linear T2 hyperintensity in the right upper quadrant anterior abdominal wall region consistent with postoperative edema. There is no evidence of ascites or intra-fluid collection. There are tiny renal cysts. No hepatic mass lesion is seen. No intrahepatic ductal dilation is observed. The common bile duct and pancreatic duct are normal in caliber and course. There is no evidence to suggest choledocholithiasis or biliary stricture. IMPRESSION: Negative MRCP exam. No evidence of choledocholithiasis. <Electronically signed by Robert Ford > 03/22/21 [id number]
[2021-03-22] MEDS: ADVAIR HFA 230/21MCG INHALER INH SCH ×2 (10:50→19:52)
[2021-03-22] MEDS: BUDESONIDE 0.5 MG/2 ML INHALATION SUSPENSION INH SCH ×2 (10:52→19:52)
[2021-03-22 14:00] VITALS: BP 144/101
[2021-03-22] MEDS: amLODIPine 5 MG TAB PO SCH (15:41)
[2021-03-22 22:00] VITALS: BP 140/100
[2021-03-22 22:30] VITALS: BP 126/88
[2021-03-23] MEDS: AMPICILLIN SOD/SULBACTAM SOD 3 GM in D5W MINI-BAG PLUS 100 ML IV SCH ×2 (00:43→05:36)
[2021-03-23 06:00] VITALS: BP 145/98
[2021-03-23] MEDS: BUDESONIDE 0.5 MG/2 ML INHALATION SUSPENSION INH SCH (07:19)
[2021-03-23] MEDS: ADVAIR HFA 230/21MCG INHALER INH SCH (07:20)
[2021-03-23 07:38] LABS: BASO % 0.3 % (0.0-1.0); EOS # 0.1 10^3/uL (0.0-0.5); HEMOGLOBIN 11.3 g/dl (13.5-17.5); LYMPH # 1.6 10^3/uL (1.5-5.0); LYMPH % 16.9 % (24.0-44.0); MEAN CORPUSCULAR HEMOGLOBIN 24.7 pg (27.0-33.0); MEAN CORPUSCULAR HGB CONC 31.4 g/dl (32.0-36.5); MEAN CORPUSCULAR VOLUME 78.6 fl (80.0-96.0); MONO # 1.2 10^3/uL (0.0-0.8); MONO % 12.9 % (2.0-8.0); NEUTROPHILS # 6.3 10^3/uL (1.5-8.5); NEUTROPHILS % 68.4 % (36.0-66.0); PLATELET COUNT, AUTOMATED 268 10^3/uL (150-450); RED BLOOD COUNT 4.58 10^6/uL (4.30-6.10); WHITE BLOOD COUNT 9.2 10^3/uL (4.0-10.0)
[2021-03-23 08:09] LABS: ALBUMIN 2.5 GM/DL (3.2-5.2); ALT/SGPT 105 U/L (12-78); BILIRUBIN,TOTAL 0.7 MG/DL (0.2-1.0); BLOOD UREA NITROGEN 5 MG/DL (7-18); CALCIUM LEVEL 8.3 MG/DL (8.5-10.1); CARBON DIOXIDE LEVEL 30 MEQ/L (21-32); CHLORIDE LEVEL 103 MEQ/L (98-107); GLOMERULAR FILTRATION RATE > 60.0 (>60); GLUCOSE, FASTING 121 MG/DL (70-100); POTASSIUM SERUM 3.2 MEQ/L (3.5-5.1); SODIUM LEVEL 139 MEQ/L (136-145); TOTAL PROTEIN 6.7 GM/DL (6.4-8.2)
[2021-03-23] MEDS: metFORMIN XR 500MG TAB *GLUCOPHAGE XR PO SCH (09:11)
[2021-03-23] MEDS: CETIRIZINE (ZyrTEC) 10 MG TAB PO SCH (09:11)
[2021-03-23] MEDS: PANTOPRAZOLE 40MG VIAL (C9113 PER 1) IV SCH (09:11)
[2021-03-23] MEDS: ENOXAPARIN 40MG/0.4ML SYRINGE (J1650 PER 10MG) SC SCH (09:12)
[2021-03-23 09:13] VITALS: BP 162/102
[2021-03-23] MEDS: amLODIPine 5 MG TAB PO SCH (09:13)
[2021-03-23] MEDS ORDERED: HYDR-3713 PO (09:39)
[2021-03-23] MEDS ORDERED: LEVO500T3 PO (09:39)
[2021-03-23] MEDS ORDERED: FLAG500T PO (09:39)
--- NOTE | 2021-03-23 15:33 | DS.PDOC ---
Discharge Summary General Date of Admission March 20, 2021 at 14:32 Date of Discharge 03/23/21 Discharge Summary PROCEDURES PERFORMED DURING STAY: Robotic Assisted Laparoscopic Cholecystectomy as per Dr. Pino 03/21/21 ADMITTING DIAGNOSES: Acute cholecystitis Asthma History of pulmonary mycobacterial infection Bronchiectasis ZHOU Diabetes Depression/anxiety DISCHARGE DIAGNOSES: Acute cholecystitis, status post Robotic Assisted Laparoscopic Cholecystectomy as per Dr. Pino 03/21/21 Asthma History of pulmonary mycobacterial infection Bronchiectasis ZHOU Diabetes Depression/anxiety HISTORY OF PRESENT ILLNESS: The patient is a 35-year-old male who presented with increasing right upper quadrant abdominal pain and nausea. Patient was evaluated in the emergency department and admitted with acute cholecystitis. HOSPITAL COURSE: Patient is status post robotic-assisted laparoscopic cholecystectomy 03/21/[address] Pino. Blood culture 2 negative. Gallbladder aspirate culture indicated Klebsiella resistant to ampicillin, sensitive to Levaquin. By 03/23/21 the patient was tolerating regular diet. White blood cell count had trended downward steadily and was 9.2 on the day of discharge. Platelet count 268. LFTs had also trended downward and on the day of discharge AST was 30, ALT 105 and alkaline phosphatase 151. The patient was felt stable for discharge, his pain had been controlled. DISCHARGE MEDICATIONS: Please see below. ALLERGIES: Please see below. PHYSICAL EXAMINATION ON DISCHARGE: VITAL SIGNS: Please see below. GENERAL: No acute distress, sitting up in bed HEENT: Moist mucous membranes CARDIOVASCULAR EXAMINATION: Regular rate rhythm RESPIRATORY EXAMINATION: Good air entry ABDOMINAL EXAMINATION: Soft, nontender, nondistended. Only a small amount of serosanguineous drainage in ISIDRO drain with only 20 mL documented past 24 hours. Incisions C/D/I. plan to remove ISIDRO drain prior to discharge today. EXTREMITIES: No edema LABORATORY DATA: Please see below. DISCHARGE PLAN: Discharge home DISPOSITION: 01 Home, Self-Care. DISCHARGE INSTRUCTIONS: Discontinued ISIDRO drain prior to discharge, dry dressing. No lifting greater than 20 pounds for 2 weeks No bath for 5 days Okay to shower Call office with any questions or concerns. Patient is advised to use ibuprofen as needed every 6 hours, hydrocodone 5/325 one tablet every 6 hours as needed. Gallbladder aspirate culture is reviewed. Levaquin 500 milligrams by mouth daily for an additional 7 days, Flagyl 500 mg by mouth every 8 hours 7 days. DISCHARGE CONDITION: Stable. TIME SPENT ON DISCHARGE: Greater than 30 minutes. Vital Signs/I&Os Vital Signs Date Time Temp Pulse Resp B/P (MAP) Pulse Ox O2 Delivery O2 Flow Rate FiO2 03/23/21 09:13 106 162/102 03/23/21 06:00 98.6 18 94 Room Air 03/22/21 01:42 1.0 I&O- Last 24 Hours up to 6 AM 03/23/21 06:00 Intake Total 2150 ml Output Total 455 ml Balance 1695 ml Laboratory Data Labs 24H Laboratory Tests 2 03/23/21 06:57: Immature Granulocyte % (Auto) 0.5, Neutrophils (%) (Auto) 68.4H, Lymphocytes (%) (Auto) 16.9L, Monocytes (%) (Auto) 12.9H, Eosinophils (%) (Auto) 1.0, Basophils (%) (Auto) 0.3, Neutrophils # (Auto) 6.3, Lymphocytes # (Auto) 1.6, Monocytes # (Auto) 1.2H, Eosinophils # (Auto) 0.1, Basophils # (Auto) 0.0, Nucleated Red Blood Cells % (auto) 0.0, Anion Gap 6L, Glomerular Filtration Rate > 60.0, Calcium Level 8.3L, Total Bilirubin 0.7, Aspartate Amino Transf (AST/SGOT) 30, Alanine Aminotransferase (ALT/SGPT) 105H, Alkaline Phosphatase 151H, Total Protein 6.7, Albumin 2.5L, Albumin/Globulin Ratio 0.6 CBC/BMP Laboratory Tests 03/23/21 06:57 Microbiology Microbiology 03/21/21 Gram Stain - Final, Resulted 03/21/21 Surgical Biopsy Culture - Final, Resulted Klebsiella Pneumoniae 03/21/21 Anaerobic Culture, Resulted Pending 03/20/21 Blood Culture - Preliminary, Resulted No Growth after 72 hours. All specime... 03/20/21 Blood Culture - Preliminary, Resulted No Growth after 72 hours. All specime... Discharge Medications Scheduled Cetirizine HCl (Cetirizine HCl) 10 Mg Tablet, 10 MG PO DAILY, (Reported) Levofloxacin (Levofloxacin) 500 Mg Tablet, 1 TAB PO DAILY Metformin HCl (Metformin HCl ER) 500 Mg Tab.er.24h, 500 MG PO BID, (Reported) Metronidazole (Flagyl) 500 Mg Tablet, 500 MG PO Q8H FOR 10 DAYS Omeprazole (Omeprazole) 20 Mg Capsule.dr, 20 MG PO DAILY, (Reported) Salmeterol/Fluticasone (Advair 500-50 Diskus) 1 Each Blst.w.dev, 1 PUFF INH BID, (Reported) Sucralfate (Sucralfate) 1 Gm Tablet, 1 GM PO ACHS, (Reported) Scheduled PRN Albuterol Sulf (Albuterol Sulfate) 2.5 Mg/3 Ml Vial.neb, 1 NEB INH QID PRN for SHORTNESS OF BREATH, (Reported) Albuterol Sulfate (Proair Hfa) 8.5 Gm Hfa.aer.ad, 2 PUFFS INH Q6H PRN for SHORTNESS OF BREATH, (Reported) Budesonide (Pulmicort) 0.5 Mg/2 Ml Ampul.neb, 1 NEB INH BID PRN for SHORTNESS OF BREATH, (Reported) Hydrocodone/Acetaminophen (Hydrocodone-Acetamin 5-325 mg) 1 Each Tablet, 1 TAB PO Q6HP PRN for pain Allergies Coded Allergies: No Known Allergies (Unverified , 11/14/19) Alice Estrella March 23, 2021 15:33
== END 2021-03-23 11:40 | disposition home or self-care (01) | DRG 419 ==
LOC: M ED 09:57 → M ED INP 14:32 → ENRESERV 18:29 → M MS5PR 21:01
PROVIDERS: ADMIT Surgery; ATTEND Surgery
PROC: 8E0W4CZ Robotic Assisted Procedure of Trunk Region, Percutaneous Endoscopic Approach (ICD-10-PCS; 2021-03-21)
PROC: 0FT44ZZ Resection of Gallbladder, Percutaneous Endoscopic Approach (ICD-10-PCS; principal; 2021-03-21 09:30)
DX: K81.0 Acute cholecystitis (principal); J45.909 Unspecified asthma, uncomplicated; J47.9 Bronchiectasis, uncomplicated; G47.33 Obstructive sleep apnea (adult) (pediatric); E11.9 Type 2 diabetes mellitus without complications; F32.9 Major depressive disorder, single episode, unspecified; F41.9 Anxiety disorder, unspecified; Z20.822 Contact with and (suspected) exposure to COVID-19; Z79.84 Long term (current) use of oral hypoglycemic drugs; Z79.899 Other long term (current) drug therapy

== ENCOUNTER → 2021-04-27 | Outpatient (CLI) | payer OTHER ==
[~2021-04-27] MED LIST changes: +CETI-14 PO; -DOXY100C37 PO; +DOXY1CAP62 PO; +FLAG500T PO; +HYDR-3713 PO; +LEVO500T3 PO; +LIDOCAINE 1% MDV 20ML VIAL As Ordered ONE; +LIDOCAINE W/EPINEPHRINE 1% 20ML VIAL As Ordered ONE; +MIDAZOLAM INJ 2MG/2ML VIAL (J2250 PER 1MG) As Ordered ONE; +NS 1,000 ML IV SCH; +OMEP1CAP73 PO; +OMEP40CA4 PO; -OMEP40CA97 PO; +SUCR1TAB56 PO; +[UNRECOGNIZED DRUG - CODE] PO; +[UNRECOGNIZED DRUG - CODE] PO; +ceFAZolin 1GM VIAL (J0690 PER 500MG) As Ordered ONE; +ceFAZolin SOD 2 GM in IV 1 EA IV ONE; +diphenhydrAMINE 50MG/ML VIAL (J1200) As Ordered ONE; +fentaNYL 100 MCG/2 ML INJECTION (J3010) As Ordered ONE
--- NOTE | 2021-04-27 12:45 | IRHP ---
[facility] IR Pre-Procedure H & P General Date of Service: Apr 27, 2021 Procedure: Same Day Surgery Interval History and Physical I have seen the patient and reviewed last H & P performed within 30 days. There is no significant interval change. History of Present Illness Chief Complaint The patient is a 36-year-old male admitted with a reason for visit of Portacath In Place. PRE-PROCEDURE DIAGNOSIS: Mycobacterial infection. Treatment complete. Patient would like his port removed. HEART: Normal rate. LUNGS: Normal breathing at rest. ASA Classification ASA Classification: II-Mild systemic disease Mallampati Score: II NPO: Yes Problems with prior sedation: No Obstructive Sleep Apnea: Yes Plan moderate sedation Allergies Coded Allergies: No Known Allergies (Unverified , 11/14/19) Home Medications Scheduled Clofazimine (Clofazimine), 50 MG PO DAILY, (Reported) Metformin HCl (Metformin HCl ER), 500 MG PO BID, (Reported) Omeprazole (Omeprazole), 20 MG PO DAILY, (Reported) Salmeterol/Fluticasone (Advair 500-50 Diskus), 1 PUFF INH BID, (Reported) Scheduled PRN Albuterol Sulf (Albuterol Sulfate), 1 NEB INH QID PRN for SHORTNESS OF BREATH, (Reported) Albuterol Sulfate (Proair Hfa), 2 PUFFS INH Q6H PRN for SHORTNESS OF BREATH, (Reported) Budesonide (Pulmicort), 1 NEB INH BID PRN for SHORTNESS OF BREATH, (Reported) Discontinued Medications Cetirizine HCl (Cetirizine HCl), 10 MG PO DAILY, (Reported) Discontinued Reason: Pt states not taking Hydrocodone/Acetaminophen (Hydrocodone-Acetamin 5-325 mg), 1 TAB PO Q6HP PRN for pain Discontinued Reason: Pt states not taking Levofloxacin (Levofloxacin), 1 TAB PO DAILY Discontinued Reason: Pt states not taking Metronidazole (Flagyl), 500 MG PO Q8H Discontinued Reason: Pt states not taking Omadacycline Tosylate (Nuzyra), 300 MG PO DAILY, (Reported) Discontinued Reason: Pt states not taking Sucralfate (Sucralfate), 1 GM PO ACHS, (Reported) Discontinued Reason: Pt states not taking VS, I&O, 24H, Fishbone Vital Signs/I&O Vital Signs Date Time Temp Pulse Resp B/P (MAP) Pulse Ox O2 Delivery O2 Flow Rate FiO2 04/27/21 12:05 98.1 97 18 98 Room Air CLEMENT ELLISON MD Apr 27, 2021 12:45
--- NOTE | 2021-04-27 14:10 | IRPON ---
IR Postoperative Note Date Of Procedure: Apr 27, 2021 Time Of Procedure: 16:00 IR Postoperative Note IR Port Removal / Explant. IR Moderate sedation. Clinical Information:MAC. IV treatment complete. Patient would like port removed. Physician: Dr. Rivera Procedure: The patient was advised of the benefits, risks, and alternatives of the procedure and informed consent was obtained. A time out was performed with verification of the patient's name, MRN, site of procedure, and type of procedure to be performed. The patient was positioned in the supine position on the angiographic table. The site was prepped and draped in the usual sterile fashion. Moderate sedation was performed by the physician including the presence of an independent trained RN who assisted in monitoring the patient's level of consciousness and physiological status. Following the administration of fentanyl and Versed the physician spent 30 minutes of continuous [id number] time with the patient. A passenger service manager radiograph reveals a right sided port. The soft tissues overlying the port were anesthetized with lidocaine. An incision was made over the port using a 15 blade scalpel in the location of the prior incision. The catheter was then freed with blunt dissection and extracted. Pressure was applied to obtain hemostasis. The port was then freed with blunt dissection and subsequently removed. There were no signs of infection. After hemostasis was achieved, the incision was closed with interrupted deep 3-0 Vicryl sutures and subcuticular Monocryl suture followed by glue and steri-strips. The site was covered with a sterile dressing. The patient tolerated the procedure well and was returned to the PRU in stable condition. EBL:Less than 5 mL Complications:None. Conclusions: 1. Successful explant of a right-sided port. 2. No signs of infection. There is an open wound at the port access site without drainage. This is not connected to the incision site. This wound should heal by secondary intention. Patient to be followed up in IR in 2 weeks. Thank you for this referral CLEMENT RIVERA MD Apr 27, 2021 14:10
--- NOTE | 2021-04-27 14:31 | IRHP ---
[facility] IR Pre-Procedure H & P General Date of Service: Apr 27, 2021 Procedure: Same Day Surgery Interval History and Physical I have seen the patient and reviewed last H & P performed within 30 days. There is no significant interval change. History of Present Illness Chief Complaint The patient is a 36-year-old male admitted with a reason for visit of Portacath In Place. PRE-PROCEDURE DIAGNOSIS: Right-sided kidney stone. UPJ obstruction. Hydronephrosis. Pain. HEART: Normal rate. LUNGS: Normal breathing at rest. Plan sedation w/anesthediology Allergies Coded Allergies: No Known Allergies (Unverified , 11/14/19) Home Medications Scheduled Clofazimine (Clofazimine), 50 MG PO DAILY, (Reported) Metformin HCl (Metformin HCl ER), 500 MG PO BID, (Reported) Omeprazole (Omeprazole), 20 MG PO DAILY, (Reported) Salmeterol/Fluticasone (Advair 500-50 Diskus), 1 PUFF INH BID, (Reported) Scheduled PRN Albuterol Sulf (Albuterol Sulfate), 1 NEB INH QID PRN for SHORTNESS OF BREATH, (Reported) Albuterol Sulfate (Proair Hfa), 2 PUFFS INH Q6H PRN for SHORTNESS OF BREATH, (Reported) Budesonide (Pulmicort), 1 NEB INH BID PRN for SHORTNESS OF BREATH, (Reported) Discontinued Medications Cetirizine HCl (Cetirizine HCl), 10 MG PO DAILY, (Reported) Discontinued Reason: Pt states not taking Hydrocodone/Acetaminophen (Hydrocodone-Acetamin 5-325 mg), 1 TAB PO Q6HP PRN for pain Discontinued Reason: Pt states not taking Levofloxacin (Levofloxacin), 1 TAB PO DAILY Discontinued Reason: Pt states not taking Metronidazole (Flagyl), 500 MG PO Q8H Discontinued Reason: Pt states not taking Omadacycline Tosylate (Nuzyra), 300 MG PO DAILY, (Reported) Discontinued Reason: Pt states not taking Sucralfate (Sucralfate), 1 GM PO ACHS, (Reported) Discontinued Reason: Pt states not taking VS, I&O, 24H, Fishbone Vital Signs/I&O Vital Signs Date Time Temp Pulse Resp B/P (MAP) Pulse Ox O2 Delivery O2 Flow Rate FiO2 6/28/21 14:20 93 18 95 Room Air 04/27/21 13:30 2.0 04/27/21 12:05 98.1 CLEMENT ELLISON MD Apr 27, 2021 14:31
--- NOTE | 2021-04-27 14:32 | IRHP ---
[facility] IR Pre-Procedure H & P General Date of Service: Apr 27, 2021 Procedure: Same Day Surgery Interval History and Physical I have seen the patient and reviewed last H & P performed within 30 days. There is no significant interval change. Patient is okay to undergo procedure. History of Present Illness Chief Complaint The patient is a 36-year-old male admitted with a reason for visit of Portacath In Place. PRE-PROCEDURE DIAGNOSIS: Right kidney stone. UPJ obstruction. Hydronephrosis. Pain. HEART: Normal rate. LUNGS: Normal breathing at rest. Plan sedation w/anesthediology Allergies Coded Allergies: No Known Allergies (Unverified , 11/14/19) Home Medications Scheduled Clofazimine (Clofazimine), 50 MG PO DAILY, (Reported) Metformin HCl (Metformin HCl ER), 500 MG PO BID, (Reported) Omeprazole (Omeprazole), 20 MG PO DAILY, (Reported) Salmeterol/Fluticasone (Advair 500-50 Diskus), 1 PUFF INH BID, (Reported) Scheduled PRN Albuterol Sulf (Albuterol Sulfate), 1 NEB INH QID PRN for SHORTNESS OF BREATH, (Reported) Albuterol Sulfate (Proair Hfa), 2 PUFFS INH Q6H PRN for SHORTNESS OF BREATH, (Reported) Budesonide (Pulmicort), 1 NEB INH BID PRN for SHORTNESS OF BREATH, (Reported) Discontinued Medications Cetirizine HCl (Cetirizine HCl), 10 MG PO DAILY, (Reported) Discontinued Reason: Pt states not taking Hydrocodone/Acetaminophen (Hydrocodone-Acetamin 5-325 mg), 1 TAB PO Q6HP PRN for pain Discontinued Reason: Pt states not taking Levofloxacin (Levofloxacin), 1 TAB PO DAILY Discontinued Reason: Pt states not taking Metronidazole (Flagyl), 500 MG PO Q8H Discontinued Reason: Pt states not taking Omadacycline Tosylate (Nuzyra), 300 MG PO DAILY, (Reported) Discontinued Reason: Pt states not taking Sucralfate (Sucralfate), 1 GM PO ACHS, (Reported) Discontinued Reason: Pt states not taking VS, I&O, 24H, Fishbone Vital Signs/I&O Vital Signs Date Time Temp Pulse Resp B/P (MAP) Pulse Ox O2 Delivery O2 Flow Rate FiO2 04/27/21 14:20 93 18 95 Room Air 04/27/21 13:30 2.0 04/27/21 12:05 98.1 CLEMENT ELLISON MD Apr 27, 2021 14:32
[2021-04-27 15:20] VITALS: BP 127/68
== END ==
LOC: M IRPRO 11:58
PROVIDERS: ATTEND Radiology Diagnostic Radiology
DX: Z45.2 Encounter for adjustment and management of vascular access device (principal); Z09 Encounter for follow-up examination after completed treatment for conditions other than malignant neoplasm
CPT/HCPCS: 36590; 99152; 99153; J0690; J1200; J1644; J2250; J3010